=== PATIENT | female | born 1990 | race Two or more races ===

== ENCOUNTER 2024-01-28 12:57 | Inpatient (IN) | payer BC ==
[~2024-01-28] VITALS: Ht 152.4 cm; Wt 64.2 kg
[~2024-01-28 12:57] MED LIST: DOCU-94 PO; HYDR-4902 PO; IBUP-1456 PO
[2024-01-28 15:11] LABS: Urine Bacteria None Seen /hpf (None Seen)
[2024-01-28 15:28] LABS: Urine Blood Negative /uL (Negative); Urine Clarity Clear (Clear); Urine Mucus FEW (None Seen); Urine Protein, UAD TRACE (Negative); Urine Specific Gravity 1.024 (1.001-1.035); Urine Urobilinogen Normal (Negative); Urine WBC <1 /hpf (0 - 5); Urine pH 7.5 (5.0-9.0)
[2024-01-28 15:30] LABS: Urine Color Yellow (Yellow)
[2024-01-28] MEDS: SODIUM CHLORIDE 0.9% 500 ML IVB ONE (15:51)
[2024-01-28] MEDS: PANTOPRAZOLE 40 MG/10 ML VIAL INJ IV ONE (15:57)
[2024-01-28] MEDS: MORPHINE SULFATE 4 MG/ML SYR/VIAL IV ONE (15:57)
[2024-01-28] MEDS: ONDANSETRON HCL 4 MG/2 ML VIAL IV ONE (15:57)
[2024-01-28 16:00] VITALS: PULSE 59; RESP 18; O2SAT 98
[2024-01-28 16:10] LABS: Basophils # (auto) 0 10 ^3/uL (0-0.2); Basophils % (auto) 0.3 % (0.0-2.0); Eosinophils # (auto) 0 10 ^3/uL (0-0.8); Hematocrit 43.4 % (36.0-46.0); Hemoglobin 14.6 g/dL (12.2-16.2); Lymphocytes # (auto) 0.6 10 ^3/uL (0.4-5.4); Lymphocytes % (auto) 5.5 % (10.0-50.0); Mean Corpuscular Hemoglobin 29.3 pg (28.0-32.0); Mean Corpuscular Hgb Conc. 33.7 g/dL (32.0-36.0); Monocytes # (auto) 0.2 10 ^3/uL (0-1.3); Monocytes % (auto) 1.9 % (0.0-12.0); Neutrophils % (auto) 92.3 % (37.0-80.0); Nucleated Red Blood Cells % 0.1 %; Platelet Count (auto) 219 10^3/uL (140-450); Red Blood Cells 4.99 10^6/uL (4.0-5.20); Red Cell Distribution Width 13.8 % (11.8-14.3); White Blood Cell 10.9 10^3/uL (4.4-10.8)
[2024-01-28 16:29] LABS: Alanine Aminotransferase 15 U/L (7-40); Albumin 5.1 g/dL (3.2-4.8); Alkaline Phosphatase 149 U/L (46-116); Anion Gap 11 (5-15); Aspartate Aminotransferase 12 U/L (13-40); BUN/Creatinine Ratio 9.5 (10.0-20.0); Blood Urea Nitrogen 6 mg/dL (9-23); Calcium 9.7 mg/dL (8.7-10.4); Carbon Dioxide 21 mmol/L (20-31); Chloride 108 mmol/L (98-107); Glucose 106 mg/dL (74-106); Lipase 31 U/L (12-53); Potassium 3.4 mmol/L (3.5-5.1); Sodium 140 mmol/L (136-145)
[2024-01-28 16:30] LABS: Total Protein 7.9 g/dL (5.7-8.2)
[2024-01-28 16:32] LABS: Bilirubin, Total 0.7 mg/dL (0.2-1.0)
[2024-01-28] MEDS: SODIUM CHLORIDE 0.9% 1,000 ML IV SCH (19:01)
[2024-01-28 20:45] VITALS: PULSE 63; RESP 18; O2SAT 98
[2024-01-28 21:00] VITALS: BP 150/88; PULSE 63; RESP 17; TEMP 98.1; O2SAT 98
[2024-01-28 21:08] VITALS: BP 150/88; PULSE 63; TEMP 98.1; O2SAT 98
[2024-01-28 22:00] VITALS: BP 146/83; PULSE 59; RESP 16; TEMP 98; O2SAT 98
[2024-01-29] VITALS (8 sets, daily range): BP systolic 106–160; BP diastolic 67–88; PULSE 64–83; RESP 17–19; TEMP 98–98.6; O2SAT 96–100
[2024-01-29 06:05] LABS: Basophils # (auto) 0.1 10 ^3/uL (0-0.2); Basophils % (auto) 0.7 % (0.0-2.0); Eosinophils # (auto) 0.1 10 ^3/uL (0-0.8); Eosinophils % (auto) 0.8 % (0.0-7.0); Hematocrit 39.4 % (36.0-46.0); Hemoglobin 13.6 g/dL (12.2-16.2); Lymphocytes # (auto) 1.3 10 ^3/uL (0.4-5.4); Lymphocytes % (auto) 16.7 % (10.0-50.0); Mean Corpuscular Hgb Conc. 34.6 g/dL (32.0-36.0); Mean Corpuscular Volume 86.7 fL (80.0-100.0); Monocytes # (auto) 0.6 10 ^3/uL (0-1.3); Monocytes % (auto) 8.2 % (0.0-12.0); Neutrophils # (auto) 5.7 10 ^3/uL (1.6-8.6); Neutrophils % (auto) 73.6 % (37.0-80.0); Platelet Count (auto) 195 10^3/uL (140-450); Red Blood Cells 4.54 10^6/uL (4.0-5.20); Red Cell Distribution Width 13.6 % (11.8-14.3); White Blood Cell 7.8 10^3/uL (4.4-10.8)
[2024-01-29 06:11] LABS: Anion Gap 10 (5-15); Carbon Dioxide 22 mmol/L (20-31); Chloride 107 mmol/L (98-107); Potassium 3.1 mmol/L (3.5-5.1); Sodium 139 mmol/L (136-145)
[2024-01-29 06:12] LABS: Calcium 8.8 mg/dL (8.7-10.4)
[2024-01-29 06:17] LABS: BUN/Creatinine Ratio 8.9 (10.0-20.0); Blood Urea Nitrogen 5 mg/dL (9-23); Glucose 92 mg/dL (74-106)
[2024-01-29] MEDS: PANTOPRAZOLE 40 MG/10 ML VIAL INJ IV SCH (09:18)
[2024-01-29] MEDS: POTASSIUM EFFERVESENT TAB 25 MEQ PO ONE (09:18)
[2024-01-29 10:26] LABS: Beta HCG, Quantitative < 0.0 mIU/mL (1.5-4.2)
[2024-01-29 10:29] LABS: Thyroid Stimulating Hormone 0.81 uIU/mL (0.55-4.78)
[2024-01-29 10:48] LABS: Amphetamine Screen, Urine Neg (NEGATIVE); Barbiturate Scree,Urine Neg (NEGATIVE); Benzodiazephine Screen, Urine Neg (NEGATIVE); Cannabinoid Screen, Urine Neg (NEGATIVE); Cocaine Screen, Urine Neg (NEGATIVE); Opiate Scree,Urine Neg (NEGATIVE); Phencyclidine Screen, Urine Neg (NEGATIVE)
[2024-01-29] MEDS: ERGOCALCIFEROL 50,000 UNIT(1.25MG) CAP PO SCH (15:19)
[2024-01-29] MEDS: KETOROLAC TROMETH 30 MG/ML 1ML VIAL IV PRN (15:19)
[2024-01-30] VITALS (9 sets, daily range): BP systolic 105–137; BP diastolic 61–87; PULSE 62–81; RESP 16–19; TEMP 97.4–98.3; O2SAT 94–100
[2024-01-30] MEDS: MORPHINE SULFATE INJ 2 MG/ml SYRG IV PRN (01:30)
[2024-01-30] MEDS: ONDANSETRON HCL 4 MG/2 ML VIAL IV PRN (04:20)
[2024-01-30 05:20] LABS: Anion Gap 11 (5-15); Calcium 8.9 mg/dL (8.7-10.4); Carbon Dioxide 22 mmol/L (20-31); Chloride 107 mmol/L (98-107); Potassium 3.5 mmol/L (3.5-5.1); Sodium 140 mmol/L (136-145)
[2024-01-30 05:26] LABS: Glucose 83 mg/dL (74-106)
[2024-01-30 05:29] LABS: BUN/Creatinine Ratio 9.6 (10.0-20.0); Blood Urea Nitrogen < 5 mg/dL (9-23)
[2024-01-30] MEDS: ceFAZolin 2 GM/D5W100ml 100 ML IV ONE (08:25)
[2024-01-30] MEDS ORDERED: ROCURONIUM 10MG/ML 10ML VIAL IV ONE (08:36)
[2024-01-30] MEDS ORDERED: MIDAZOLAM HCL 2MG/2ML 2ml VIAL (1mg/ml) ONE (08:36)
[2024-01-30] MEDS ORDERED: HYDROmorphone HCL 2 MG/ML VL/or syr ONE (09:00)
[2024-01-30] MEDS ORDERED: ONDANSETRON HCL 4 MG/2 ML VIAL ONE (09:09)
[2024-01-30] MEDS ORDERED: DexAMETHasone SOD PHOS 10MG/1ML VIAL INJ ONE (09:09)
[2024-01-30] MEDS ORDERED: KETOROLAC TROMETH 30 MG/ML 1ML VIAL ONE (09:09)
[2024-01-30] MEDS ORDERED: ONDANSETRON HCL 4 MG/2 ML VIAL IV PRN (09:30)
[2024-01-30] MEDS ORDERED: HYDROmorphone HCL 2 MG/ML VL/or syr IV PRN (09:30)
[2024-01-30] MEDS: PANTOPRAZOLE 40 MG/10 ML VIAL INJ IV SCH (10:00)
[2024-01-30] MEDS: D5W/SOD CHL 0.45%/KCL 20MEQ 1,000 ML IV SCH (11:05)
[2024-01-30] MEDS: metroNIDAZOLE 500MG/100ML 100 ML IV SCH (14:00)
[2024-01-30] MEDS: ceFAZolin 2 GM/D5W50ml 50 ML IV SCH (16:11)
[2024-01-30] MEDS: ACETAMINOPHEN 325 MG TAB PO PRN (22:41)
[2024-01-31] VITALS (8 sets, daily range): BP systolic 104–142; BP diastolic 63–85; PULSE 62–73; RESP 16–22; TEMP 97.5–98.3; O2SAT 96–100
[2024-01-31 07:15] LABS: Basophils # (auto) 0 10 ^3/uL (0-0.2); Basophils % (auto) 0.7 % (0.0-2.0); Eosinophils # (auto) 0.1 10 ^3/uL (0-0.8); Eosinophils % (auto) 2.1 % (0.0-7.0); Hematocrit 34.6 % (36.0-46.0); Hemoglobin 11.8 g/dL (12.2-16.2); Lymphocytes # (auto) 1.2 10 ^3/uL (0.4-5.4); Lymphocytes % (auto) 20.2 % (10.0-50.0); Mean Corpuscular Hemoglobin 29.9 pg (28.0-32.0); Mean Corpuscular Hgb Conc. 34.2 g/dL (32.0-36.0); Mean Corpuscular Volume 87.4 fL (80.0-100.0); Monocytes # (auto) 0.5 10 ^3/uL (0-1.3); Monocytes % (auto) 8.2 % (0.0-12.0); Neutrophils # (auto) 4.2 10 ^3/uL (1.6-8.6); Neutrophils % (auto) 68.8 % (37.0-80.0); Platelet Count (auto) 176 10^3/uL (140-450); Red Blood Cells 3.96 10^6/uL (4.0-5.20); Red Cell Distribution Width 13.5 % (11.8-14.3); White Blood Cell 6.2 10^3/uL (4.4-10.8)
[2024-01-31] MEDS: ceFAZolin 2 GM/D5W50ml 50 ML IV SCH (09:04)
[2024-02-01 01:00] VITALS: BP 97/63; PULSE 63; RESP 16; TEMP 97.7; O2SAT 98
[2024-02-01 05:00] VITALS: BP 113/61; PULSE 68; RESP 16; TEMP 97.8; O2SAT 97
[2024-02-01 07:37] LABS: Basophils # (auto) 0 10 ^3/uL (0-0.2); Basophils % (auto) 0.7 % (0.0-2.0); Eosinophils # (auto) 0.1 10 ^3/uL (0-0.8); Eosinophils % (auto) 3.7 % (0.0-7.0); Hemoglobin 12.4 g/dL (12.2-16.2); Lymphocytes % (auto) 24.9 % (10.0-50.0); Mean Corpuscular Hemoglobin 30.2 pg (28.0-32.0); Mean Corpuscular Hgb Conc. 34.4 g/dL (32.0-36.0); Mean Corpuscular Volume 87.8 fL (80.0-100.0); Monocytes # (auto) 0.3 10 ^3/uL (0-1.3); Monocytes % (auto) 8.2 % (0.0-12.0); Neutrophils # (auto) 2.5 10 ^3/uL (1.6-8.6); Neutrophils % (auto) 62.5 % (37.0-80.0); Platelet Count (auto) 185 10^3/uL (140-450); Red Cell Distribution Width 13.5 % (11.8-14.3); White Blood Cell 4.1 10^3/uL (4.4-10.8)
[2024-02-01 07:40] LABS: Alanine Aminotransferase 16 U/L (7-40); Albumin 3.9 g/dL (3.2-4.8); Alkaline Phosphatase 102 U/L (46-116); Anion Gap 7 (5-15); Aspartate Aminotransferase 10 U/L (13-40); Bilirubin, Total 0.4 mg/dL (0.2-1.0); Blood Urea Nitrogen 6 mg/dL (9-23); Carbon Dioxide 28 mmol/L (20-31); Chloride 105 mmol/L (98-107); Glucose 88 mg/dL (74-106); Potassium 3.1 mmol/L (3.5-5.1); Sodium 140 mmol/L (136-145); Total Protein 6.2 g/dL (5.7-8.2)
[2024-02-01 09:00] VITALS: BP 128/90; PULSE 64; RESP 16; TEMP 97.9; O2SAT 98
[2024-02-01] MEDS ORDERED: ERGO1CAP23 PO (09:51)
[2024-02-01] MEDS ORDERED: CEPH250C PO (09:51)
[2024-02-01] MEDS ORDERED: METR-344 PO (09:52)
[2024-02-01 11:10] VITALS: TEMP 36.6
[2024-02-01] MEDS: POTASSIUM CHL 20 Meq TABLET PO ONE (11:42)
== END 2024-02-01 13:25 | disposition home or self-care (01) | DRG 418 ==
LOC: ER 13:09 → OVERFLOW 18:21 → WEST WING 20:43
PROVIDERS: ADMIT Internal Medicine; ATTEND Internal Medicine
PROC: 0FT44ZZ Resection of Gallbladder, Percutaneous Endoscopic Approach (ICD-10-PCS; principal; 2024-01-30 08:36)
DX: K80.12 Calculus of gallbladder with acute and chronic cholecystitis without obstruction (principal); N20.1 Calculus of ureter; E87.6 Hypokalemia; I10 Essential (primary) hypertension; E55.9 Vitamin D deficiency, unspecified; E66.9 Obesity, unspecified; K66.0 Peritoneal adhesions (postprocedural) (postinfection); Z98.891 History of uterine scar from previous surgery; Z68.27 Body mass index [BMI] 27.0-27.9, adult; Z79.899 Other long term (current) drug therapy
CPT/HCPCS: 36415; 76705; 80048; 80053; 80307; 81001; 81025; 82247; 82306; 82607; 83690; 83735; 84443; 84702; 85025; 86850; 86900; 86901; 96374; 96375; G0378; J1100; J1885; J2250; J2405; J2470; J3490

== ENCOUNTER 2024-02-19 17:59 | Inpatient (IN) | payer BC ==
[~2024-02-19] VITALS: Ht 152.4 cm; Wt 64.4 kg
[~2024-02-19 17:59] MED LIST changes: +CEPH250C PO; +ERGO1CAP23 PO; +METR-344 PO
[2024-02-19] MEDS: SODIUM CHLORIDE 0.9% 1,000 ML IVB ONE (18:15)
--- NOTE | 2024-02-19 18:26 | ED.PDOC ---
History of Present Illness HPI Comments 33 y/o F, with a Hx of cholecystectomy, , preeclampsia, and EtOH use, presents with c/o non-radiating, RUQ abdominal pain, nausea, vomiting, and constipation since 1300, today. Patient endorses on unprovoked and sudden onset of symptoms, this afternoon, that has been persisting since. Patient comments on vomitus being green and having white phlegm in it in addition to having an associated "heart burn" sensation. Patient also informs of recent cholecystectomy 2.5 weeks ago and 3 months ago. Patient endorses on no further relevant or pertinent past medical or surgical Hx in addition to recent stress, injuries, sick contact, travel, spoiled food intake, or substance us e/exposure. Patient denies having any diarrhea, urinary symptoms, fever, chills, or other associated symptoms or modifiers at this time. Chief Complaint: Abdominal Pain Time Seen by MD: 18:10 Primary Care Provider: UNKNOWN Reviewed Notes: Nurses Notes, Medications, Allergies Allergies: Coded Allergies: NO KNOWN ALLERGIES (Unverified , 09/14/23) Home Meds Active Scripts Metronidazole (Flagyl) 500 Mg Tab, 1 TAB PO TID for 5 Days, #15 TAB Prov:AQUILES GARZON RESIDENT 02/01/24 Cephalexin (KEFLEX CAPSULE) 250 Mg Cp, 2 CAP PO BID for 5 Days, #28 CAP Prov:AQUILES GARZON RESIDENT 02/01/24 Ergocalciferol (VITAMIN D 55653 UNIT) 50,000 [place], [address] UNIT PO Q7D for 90 Days, #12 CAP Prov:AQUILES GARZON RESIDENT 02/01/24 Ibuprofen (Ibuprofen) 800 Mg Tab, 800 MG PO TID PRN for 5 Days, #15 TAB Prov:PRESLEY SHAVER DO 09/14/23 Hydrocodone-Acetaminophen (Hydrocodone Bitartrate/AC 5-325 mg) 1 Tab Tab, 1 TAB PO Q6HPRN PRN for 7 Days, #28 TAB Prov:PRESLEY SHAVER DO 09/14/23 Docusate Sodium (Colace) 100 Mg Cap, 1 CAP PO BID, #60 CAP 2 Refills Prov:PRESLEY SHAVER DO 09/14/23 Information Source: Patient Mode of Arrival: Ambulatory Severity: Moderate Timing: Hours Duration: Since onset Prehospital treatment: None Past Medical History 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, 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 (preeclampsia) Family History Family History: Reviewed,noncontributory to illness, Family hx of DM, Family hx of HTN Social History Smoker: Non-Smoker Alcohol: Occasionally Drugs: Denies Drug Use Lives In: Home Constitutional: denies: chills, diaphoresis, fatigue, fever, malaise, sweats, weakness, others EENTM: denies: blurred vision, double vision, ear bleeding, ear discharge, ear drainage, ear pain, ear ringing, eye pain, eye redness, hearing loss, mouth pain, mouth swelling, nasal discharge, nose bleeding, nose congestion, nose pain, photophobia, tearing, throat pain, throat swelling, voice changes, others Respiratory: denies: cough, hemoptysis, orthopnea, SOB at rest, shortness of breath, SOB with excertion, stridor, wheezing, others Cardiovascular: denies: chest pain, dizzy spells, diaphoresis, Dyspnea on exertion, edema, irregular heart beat, left arm pain, lightheadedness, palpitations, PND, syncope, others Gastrointestinal: reports: abdominal pain, constipated, nausea, vomiting; aylin es: abdomen distended, blood streaked bowels, diarrhea, dysphagia, difficulty swallowing, hematemesis, melena, poor appetite, poor fluid intake, rectal bleeding, rectal pain, others Genitourinary: denies: abnormal vagina bleeding, burning, dyspareunia, dysuria, flank pain, frequency, hematuria, incontinence, pain, , vagina discharge, urgency, others Neurological: denies: dizziness, fainting, headache, left sided numbness, left sided weakness, numbness, paresthesia, pre-existing deficit, right sided numbness, right sided weakness, seizure, speech problems, tingling, tremors, weakness, others Musculoskeletal: denies: back pain, gout, joint pain, joint swelling, muscle pain, muscle stiffness, neck pain, others Integumetry: denies: bruises, change in color, change in hair/nails, dryness, laceration, lesions, lumps, rash, wounds, others Allergic/Immunocompromised: denies: Difficulty Healing, Frequent Infections, Hives, Itching, others Hematologic/Lymphatic: denies: anemia, blood clots, easy bleeding, easy bruising, swollen glands, others Endocrine: denies: excessive hunger, excessive sweating, excessive thirst, excessive urination, flushing, intolerance to cold, intolerance to heat, unexplained weight gain, unexplained weight loss, others Psychiatric: denies: anxiety, bipolar disorder, depression, hopeless, panic disorder, schizophrenia, sleepless, suicidal, others All Other Systems: Reviewed and Negative Physical Exam General Appearance: No Apparent Distress, Normal HEENT: Normal ENT Inspection, Pharynx Normal, TMs Normal Neck: Full Range of Motion, Non-Tender, Normal, Normal Inspection Respiratory: Chest Non-Tender, Lungs Clear, No Accessory Muscle Use, No Respiratory Distress, Normal Breath Sounds Cardiovascular: No Edema, No JVD, No Murmur, No Gallop, Normal Peripheral Pulses, Regular Rate/Rhythm Breast Exam: Deferred Gastrointestinal: No Organomegaly, No Pulsatile Mass, Normal Bowel Sounds, RUQ (moderate tenderness), Soft Genitalia: Deferred Pelvic: Deferred Rectal: Deferred Extremities: No calf tenderness, Normal capillary refill, Normal inspection, Normal range of motion, Non-tender, No pedal edema Musculoskeletal : Apperance: Normal Neurologic: Alert, transportation associate II-XII nml as Tested, No Motor Deficits, Normal Affect, Normal Mood, No Sensory Deficits Cerebellar Function: Normal Reflexes: Normal Skin: Dry, Normal Color, Warm Lymphatic: No Adenopathy Was a procedure done? Was a procedure done?: No Differential Dx Considerations may include: cholelithiasis, gastritis, gastroenteritis, PUD, GERD, viral syndrome, spoiled food, , acute abdomen X-Ray, Labs, Meds, VS Vital Signs Date Time Temp Pulse Resp B/P (MAP) Pulse Ox O2 Delivery O2 Flow Rate FiO2 02/19/24 19:44 67 16 99 Room Air 02/19/24 19:43 98.3 67 16 143/86 (105) 99 98.3 02/19/24 18:12 97.7 107 20 138/90 (106) 100 02/19/24 18:12 97.7 107 20 138/90 (106) 100 97.7 Lab Test 02/19/24 18:40 02/19/24 18:25 Range/Units White Blood Count 5.9 4.4-10.8 10^3/uL Red Blood Count 4.66 4.0-5.20 10^6/uL Hemoglobin 13.9 12.2-16.2 g/dL Hematocrit 41.1 36.0-46.0 % Mean Corpuscular Volume 88.1 80.0-100.0 fL Mean Corpuscular Hemoglobin 29.7 28.0-32.0 pg Mean Corpuscular Hemoglobin Concent 33.7 32.0-36.0 g/dL Red Cell Distribution Width 13.6 11.8-14.3 % Platelet Count 231 140-450 10^3/uL Mean Platelet Volume 8.8 6.9-10.8 fL Neutrophils (%) (Auto) 79.5 37.0-80.0 % Lymphocytes (%) (Auto) 12.2 10.0-50.0 % Monocytes (%) (Auto) 7.1 0.0-12.0 % Eosinophils (%) (Auto) 0.6 0.0-7.0 % Basophils (%) (Auto) 0.6 0.0-2.0 % Neutrophils # (Auto) 4.7 1.6-8.6 10 ^3/uL Lymphocytes # (Auto) 0.7 0.4-5.4 10 ^3/uL Monocytes # (Auto) 0.4 0-1.3 10 ^3/uL Eosinophils # (Auto) 0 0-0.8 10 ^3/uL Basophils # (Auto) 0 0-0.2 10 ^3/uL Nucleated Red Blood Cells 0.1 % Sodium Level 141 136-145 mmol/L Potassium Level 3.8 3.5-5.1 mmol/L Chloride Level 104 98-107 mmol/L Carbon Dioxide Level 23 20-31 mmol/L Anion Gap 14 5-15 Blood Urea Nitrogen 8 L 9-23 mg/dL Creatinine 0.52 L 0.550-1.02 mg/dL Glomerular Filtration Rate Calc 125 >90 mL/min BUN/Creatinine Ratio 15.4 10.0-20.0 Serum Glucose 101 74-106 mg/dL Lactic Acid Level 0.7 0.4-2.0 mmol/L Calcium Level 9.7 8.7-10.4 mg/dL Total Bilirubin 2.5 H 0.2-1.0 mg/dL Aspartate Amino Transferase (AST) 615 H 13-40 U/L Alanine Aminotransferase (ALT) 452 H 7-40 U/L Alkaline Phosphatase 404 H 46-116 U/L Total Protein 7.1 5.7-8.2 g/dL Albumin 4.7 3.2-4.8 g/dL Lipase 23 12-53 U/L Beta HCG, Quantitative 0.7 L 1.5-4.2 mIU/mL Urine Color Dark-yellow Yellow Urine Clarity Turbid H Clear Urine pH 6.0 5.0-9.0 Urine Specific [place] 1.031 1.001-1.035 Urine Protein 1+ H Negative Urine Ketones 3+ H Negative Urine Blood Negative Negative /uL Urine Nitrite Negative Negative Urine Bilirubin 2+ H Negative Urine Urobilinogen 4 H Negative mg/dL Urine Leukocyte Esterase Negative Negative /uL Urine RBC 5 0 - 4 /hpf Urine WBC 6 0 - 5 /hpf Urine Squamous Epithelial Cells Few <5 /hpf Urine Bacteria Few H None Seen /hpf Urine Mucus Few None Seen Urine Glucose Normal Normal mg/dL Current Medications Medications (Trade) Dose Ordered Sig/Louie Route Start Time Stop Time Status Last Admin Sodium Chloride 1,000 ml @ 1,000 mls/hr Q1H ONCE IVB 02/19/24 18:15 02/19/24 19:14 DC 02/19/24 18:15 Ketorolac Tromethamine (Toradol Injection) 30 mg ONCE ONCE IV 02/19/24 18:15 02/19/24 18:19 DC 02/19/24 19:46 [place] [id number] Ph: [phone] DIAGNOSTIC IMAGING Diagnostic Imaging Report : [id number] Signed PATIENT: ARMAND MATA ACCT: [id number] UNIT: [id number] : 1990 LOC: ER ROOM / BED: / AGE / SEX: 33 / F ADM STATUS: REG ER SERVICE 675 ORDERING PHYSICIAN: SHINE GILMORE MD PROCEDURE(s): ABPLIV - CT AB PEL WITH IV CON ONLY REASON: ruq tend ORDER NUMBER(s): [id number], ACCESSION NUMBER(s): [id number] Exam: CT CT AB PEL WITH IV CON ONLY History: ruq tend Comparison Study: None available at time of dictation. TECHNIQUE: Multidetector CT of the abdomen was performed from lung bases to pubic symphysis. Imaging was performed without IV contrast. Axial, coronal and sagittal multiplanar reformats were obtained from the axial data set by the technologist. Radiation Dose Information: CT Dose: CTDI volume is 6.89 mGy. Dose-length product is 367.05 mGy*cm Omnipaque 300: 100 cc FINDINGS: Lung Bases: No acute or significant lung base finding. Normal heart size. No pleural or pericardial effusion. Liver: The liver is normal in size. No focal lesions. Gallbladder and Biliary Tree: Surgical clips in the gallbladder fossa from previous cholecystectomy. No dilated intrahepatic ducts. Spleen: Unremarkable Pancreas: The pancreas is grossly normal in appearance. Adrenal Glands: Unremarkable Kidneys: Kidneys are grossly normal without calculi or hydronephrosis. Bladder: Grossly unremarkable for degree of distention. Bowel: The stomach is grossly normal in appearance. Small bowel and colon are normal in caliber and distribution. The appendix is not visualized; however, no secondary findings of acute appendicitis identified. Ascites: Absent Lymphadenopathy: No mesenteric, retroperitoneal or periportal lymphadenopathy. Abdominal Wall and Mesentery: Unremarkable. Vasculature: The visualized abdominal aorta is normal in size and caliber. Evaluation of abdominal and pelvic vessels is limited due to lack of intravenous contrast. Pelvic Organs: Unremarkable Musculoskeletal: No aggressive focal bony lesions, acute fractures or dislocation. Soft tissues: Unremarkable IMPRESSION: 1. Gallbladder is been surgically removed. 2. No CT findings to suggest bowel obstruction. 3. Stool noted throughout the colon. 4. No nephrolithiasis or hydronephrosis. Radiation optimization: All CT scans at this facility use at least one of these dose optimization techniques: automated exposure control mA and/or kV adjustment per patient size (includes targeted exams where dose is matched to clinical indication) or iterative reconstruction. ATED BY: GIANNI LOWERY Jr., DO DICTATED DATE/TIME: 02/19/242110 SIGNED BY: GIANNI LOWERY Jr., SIGNED DATE/TIME: 02/19/242110 CC: UA is normal. Abdominal ultrasound is pending CBC is normal LFTs are elevated. The patient will be admitted for intractable vomiting. Time of 1ST Reevaluation: 18:40 Reevaluation 1ST: Unchanged Patient Education/Counseling: Diagnosis, Treatment Family Education/Counseling: No Family Present Departure 1 Departure Time of Disposition: 21:32 Impression: Primary Impression: Elevated LFTs Additional Impression: Biliary obstruction Disposition: 09 ADMITTED INPATIENT Admit to: Med Surg Condition: Guarded Critical Care Note Critical Care Time?: No Stability Stability form required: No Heart Score Heart Score: Heart Score Response (Comments) Value History N/A 0 EKG N/A 0 Age N/A 0 Risk Factors N/A 0 Troponin N/A 0 Total 0 I personally scribed for SHINE GILMORE MD ([email or web address]) on 02/19/24 at 18:26. Electronically submitted by Josiah Friedman [email or web address]). I personally scribed for SHINE GILMORE MD ([email or web address]) on 02/19/24 at 21:19. Electronically submitted by Josiah Friedman [email or web address]). SHINE GILMORE MD Feb 19, 2024 18:26
[2024-02-19 18:35] LABS: Urine Bacteria FEW /hpf (None Seen); Urine Blood Negative /uL (Negative); Urine Clarity Turbid (Clear); Urine Color Dark-Yellow (Yellow); Urine Mucus FEW (None Seen); Urine Protein, UAD 1+ (Negative); Urine Specific Gravity 1.031 (1.001-1.035); Urine Urobilinogen 4 mg/dL (Negative); Urine WBC 6 /hpf (0 - 5)
[2024-02-19 19:17] LABS: Basophils # (auto) 0 10 ^3/uL (0-0.2); Basophils % (auto) 0.6 % (0.0-2.0); Eosinophils # (auto) 0 10 ^3/uL (0-0.8); Eosinophils % (auto) 0.6 % (0.0-7.0); Hematocrit 41.1 % (36.0-46.0); Hemoglobin 13.9 g/dL (12.2-16.2); Lymphocytes # (auto) 0.7 10 ^3/uL (0.4-5.4); Lymphocytes % (auto) 12.2 % (10.0-50.0); Mean Corpuscular Hemoglobin 29.7 pg (28.0-32.0); Mean Corpuscular Hgb Conc. 33.7 g/dL (32.0-36.0); Mean Corpuscular Volume 88.1 fL (80.0-100.0); Monocytes # (auto) 0.4 10 ^3/uL (0-1.3); Monocytes % (auto) 7.1 % (0.0-12.0); Neutrophils # (auto) 4.7 10 ^3/uL (1.6-8.6); Neutrophils % (auto) 79.5 % (37.0-80.0); Nucleated Red Blood Cells % 0.1 %; Platelet Count (auto) 231 10^3/uL (140-450); Red Blood Cells 4.66 10^6/uL (4.0-5.20); Red Cell Distribution Width 13.6 % (11.8-14.3); White Blood Cell 5.9 10^3/uL (4.4-10.8)
[2024-02-19 19:45] LABS: Alanine Aminotransferase 452 U/L (7-40); Albumin 4.7 g/dL (3.2-4.8); Alkaline Phosphatase 404 U/L (46-116); Anion Gap 14 (5-15); Aspartate Aminotransferase 615 U/L (13-40); BUN/Creatinine Ratio 15.4 (10.0-20.0); Bilirubin, Total 2.5 mg/dL (0.2-1.0); Blood Urea Nitrogen 8 mg/dL (9-23); Calcium 9.7 mg/dL (8.7-10.4); Carbon Dioxide 23 mmol/L (20-31); Chloride 104 mmol/L (98-107); Glucose 101 mg/dL (74-106); Lipase 23 U/L (12-53); Potassium 3.8 mmol/L (3.5-5.1); Sodium 141 mmol/L (136-145); Total Protein 7.1 g/dL (5.7-8.2)
[2024-02-19] MEDS: KETOROLAC TROMETH 30 MG/ML 1ML VIAL IV ONE (19:46)
[2024-02-19] MEDS: IOHEXOL 300 MG/ML 100ML BOTTLE IJ ONE (20:22)
--- NOTE | 2024-02-19 21:13 | DVH ---
Exam: CT CT AB PEL WITH IV CON ONLY History: ruq tend Comparison Study: None available at time of dictation. TECHNIQUE: Multidetector CT of the abdomen was performed from lung bases to pubic symphysis. Imaging was performed without IV contrast. Axial, coronal and sagittal multiplanar reformats were obtained fr om the axial data set by the technologist. Radiation Dose Information: CT Dose: CTDI volume is 6.89 mGy. Dose-length product is 367.05 mGy*cm Omnipaque 300: 100 cc FINDINGS: Lung Bases: No acute or significant lung base finding. Normal heart size. No pleural or pericardial effusion. Liver: The liver is normal in size. No focal lesions. Gallbladder and Biliary Tree: Surgical clips in the gallbladder fossa from previous cholecystectomy. No dilated intrahepatic ducts. Spleen: Unremarkable Pancreas: The pancreas is grossly normal in appearance. Adrenal Glands: Unremarkable Kidneys: Kidneys are grossly normal without calculi or hydronephrosis. Bladder: Grossly unremarkable for degree of distention. Bowel: The stomach is grossly normal in appearance. Small bowel and colon are normal in caliber and d istribution. The appendix is not visualized; however, no secondary findings of acute appendicitis id entified. Ascites: Absent Lymphadenopathy: No mesenteric, retroperitoneal or periportal lymphadenopathy. Abdominal Wall and Mesentery: Unremarkable. Vasculature: The visualized abdominal aorta is normal in size and caliber. Evaluation of abdominal a nd pelvic vessels is limited due to lack of intravenous contrast. Pelvic Organs: Unremarkable Musculoskeletal: No aggressive focal bony lesions, acute fractures or dislocation. Soft tissues: Unremarkable IMPRESSION: 1. Gallbladder is been surgically removed. 2. No CT findings to suggest bowel obstruction. 3. Stool noted throughout the colon. 4. No nephrolithiasis or hydronephrosis. Radiation optimization: All CT scans at this facility use at least one of these dose optimization jacques hniques: automated exposure control mA and/or kV adjustment per patient size (includes targeted exam s where dose is matched to clinical indication) or iterative reconstruction.
--- NOTE | 2024-02-19 21:52 | DVH ---
Procedure: US ABDOMEN LIMITED Study Date and Requested Time: 02/19/2024 09:15 PM History: ELEV LFTS Comparison: US GALLBLADDER on DOS: 01/28/24 Technique: Multiple high resolution benjamin-scale images obtained of the right upper quadrant of the abd omen with color Doppler for evaluation of blood flow and vascularity as indicated. Findings: Liver normal in size, measuring 15 cm in length, with homogenous echotexture and normal contours. No evidence of focal hepatic lesions, intrahepatic or extrahepatic ductal dilatation. Common bile duct m easures 0.8 cm in diameter. Status post cholecystectomy Pancreas is unremarkable. Right kidney measures 9 cm in length, with normal contours, echotexture, and cortical thickness. No e vidence of hydronephrosis, calculi, cystic or solid renal lesions. Partially visualized inferior vena cava unremarkable. Impression: Unremarkable sonographic study of the right upper quadrant of the abdomen. Status post cholecystectomy.
[2024-02-19] MEDS: ONDANSETRON HCL 4 MG/2 ML VIAL IV ONE (23:42)
[2024-02-19] MEDS: HYDROmorphone HCL 2 MG/ML VL/or syr IV ONE (23:42)
[2024-02-19 23:49] VITALS: PULSE 54; RESP 18; O2SAT 100
[2024-02-20 00:50] VITALS: PULSE 56; RESP 18; O2SAT 100
[2024-02-20 08:00] VITALS: PULSE 79; RESP 22; O2SAT 97
[2024-02-20 16:40] LABS: Alanine Aminotransferase 382 U/L (7-40); Albumin 4.5 g/dL (3.2-4.8); Alkaline Phosphatase 426 U/L (46-116); Anion Gap 15 (5-15); Aspartate Aminotransferase 257 U/L (13-40); BUN/Creatinine Ratio 14.5 (10.0-20.0); Blood Urea Nitrogen 8 mg/dL (9-23); Calcium 9.3 mg/dL (8.7-10.4); Carbon Dioxide 19 mmol/L (20-31); Chloride 104 mmol/L (98-107); Glucose 65 mg/dL (74-106); Potassium 3.8 mmol/L (3.5-5.1); Sodium 138 mmol/L (136-145)
[2024-02-20 16:41] LABS: Bilirubin, Total 3.9 mg/dL (0.2-1.0); Total Protein 7.1 g/dL (5.7-8.2)
--- NOTE | 2024-02-20 17:31 | DVHHP2 ---
Admitting Diagnosis: Abdominal pain History of Present Illness 33 y/o F, with a Hx of cholecystectomy, , preeclampsia, and EtOH use, presents with c/o non-radiating, RUQ abdominal pain, nausea, vomiting, and constipation since 1300, today. Patient endorses on unprovoked and sudden onset of symptoms, this afternoon, that has been persisting since. Patient comments on vomitus being green and having white phlegm in it in addition to having an associated "heart burn" sensation. Patient also informs of recent cholecystectomy 2.5 weeks ago and 3 months ago. Patient endorses on no further relevant or pertinent past medical or surgical Hx in addition to recent stress, injuries, sick contact, travel, spoiled food intake, or substance use/exposure. Patient denies having any diarrhea, urinary symptoms, fever, chills, or other associated symptoms or modifiers at this time. 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) Family History Family History: Reviewed,noncontributory to illness, Family hx of DM, Family hx of HTN Social History Smoker: Non-Smoker Alcohol: Occasionally Drugs: Denies Drug Use Lives In: Home Patient Family History: Diabetes mellitus G8 FATHER FH: multiple sclerosis G8 MOTHER Allergies: Coded Allergies: NO KNOWN ALLERGIES (Unverified , 09/14/23) Home Meds Active Scripts Metronidazole (Flagyl) 500 Mg Tab, 1 TAB PO TID for 5 Days, #15 TAB Prov:AQUILES GARZON RESIDENT 02/01/24 Cephalexin (KEFLEX CAPSULE) 250 Mg Cp, 2 CAP PO BID for 5 Days, #28 CAP Prov:AQUILES GARZON [facility] 02/01/24 Ergocalciferol (VITAMIN D 19905 UNIT) 50,000 [place], [address] UNIT PO Q7D for 90 Days, #12 CAP Prov:AQUILES GARZON RESIDENT 02/01/24 Ibuprofen (Ibuprofen) 800 Mg Tab, 800 MG PO TID PRN for 5 Days, #15 TAB Prov:PRESLEY SHAVER DO 09/14/23 Hydrocodone-Acetaminophen (Hydrocodone Bitartrate/AC 5-325 mg) 1 Tab Tab, 1 TAB PO Q6HPRN PRN for 7 Days, #28 TAB Prov:PRESLEY SHAVER DO 09/14/23 Docusate Sodium (Colace) 100 Mg Cap, 1 CAP PO BID, #60 CAP 2 Refills Prov:PRESLEY SHAVER DO 09/14/23 Vital Signs Vital Signs Date Time Temp Pulse Resp B/P (MAP) Pulse Ox O2 Delivery O2 Flow Rate FiO2 02/20/24 14:00 70 22 110/70 (83) 97 02/20/24 08:00 Room Air* 0 21 02/20/24 08:00 98.2 98.2 Physical Exam -33 years old woman, well nourished well developed. Moderate distress HEENT-atraumatic normocephalic Heart-regular rate and rhythm Lungs clear to auscultate Abdomen soft, tender epigastric and right upper quadrant, nondistended Musculoskeletal-no edema cyanosis Neuro-AO x3, no focal deficit Results Labs Test 02/20/24 15:58 02/19/24 18:40 02/19/24 18:25 Range/Units Sodium Level 138 136-145 mmol/L Potassium Level 3.8 3.5-5.1 mmol/L Chloride Level 104 98-107 mmol/L Carbon Dioxide Level 19 L 20-31 mmol/L Anion Gap 15 5-15 Blood Urea Nitrogen 8 L 9-23 mg/dL Creatinine 0.55 0.550-1.02 mg/dL Glomerular Filtration Rate Calc 123 >90 mL/min BUN/Creatinine Ratio 14.5 10.0-20.0 Serum Glucose 65 L 74-106 mg/dL Calcium Level 9.3 8.7-10.4 mg/dL Total Bilirubin 3.9 H 0.2-1.0 mg/dL Aspartate Amino Transferase (AST) 257 H 13-40 U/L Alanine Aminotransferase (ALT) 382 H 7-40 U/L Alkaline Phosphatase 426 H 46-116 U/L Total Protein 7.1 5.7-8.2 g/dL Albumin 4.5 3.2-4.8 g/dL White Blood Count 5.9 4.4-10.8 10^3/uL Red Blood Count 4.66 4.0-5.20 10^6/uL Hemoglobin 13.9 12.2-16.2 g/dL Hematocrit 41.1 36.0-46.0 % Mean Corpuscular Volume 88.1 80.0-100.0 fL Mean Corpuscular Hemoglobin 29.7 28.0-32.0 pg Mean Corpuscular Hemoglobin Concent 33.7 32.0-36.0 g/dL Red Cell Distribution Width 13.6 11.8-14.3 % Platelet Count 231 140-450 10^3/uL Mean Platelet Volume 8.8 6.9-10.8 fL Neutrophils (%) (Auto) 79.5 37.0-80.0 % Lymphocytes (%) (Auto) 12.2 10.0-50.0 % Monocytes (%) (Auto) 7.1 0.0-12.0 % Eosinophils (%) (Auto) 0.6 0.0-7.0 % Basophils (%) (Auto) 0.6 0.0-2.0 % Neutrophils # (Auto) 4.7 1.6-8.6 10 ^3/uL Lymphocytes # (Auto) 0.7 0.4-5.4 10 ^3/uL Monocytes # (Auto) 0.4 0-1.3 10 ^3/uL Eosinophils # (Auto) 0 0-0.8 10 ^3/uL Basophils # (Auto) 0 0-0.2 10 ^3/uL Nucleated Red Blood Cells 0.1 % Lactic Acid Level 0.7 0.4-2.0 mmol/L Lipase 23 12-53 U/L Beta HCG, Quantitative 0.7 L 1.5-4.2 mIU/mL Urine Color Dark-yellow Yellow Urine Clarity Turbid H Clear Urine pH 6.0 5.0-9.0 Urine Specific [place] 1.031 1.001-1.035 Urine Protein 1+ H Negative Urine Ketones 3+ H Negative Urine Blood Negative Negative /uL Urine Nitrite Negative Negative Urine Bilirubin 2+ H Negative Urine Urobilinogen 4 H Negative mg/dL Urine Leukocyte Esterase Negative Negative /uL Urine RBC 5 0 - 4 /hpf Urine WBC 6 0 - 5 /hpf Urine Squamous Epithelial Cells Few <5 /hpf Urine Bacteria Few H None Seen /hpf Urine Mucus Few None Seen Urine Glucose Normal Normal mg/dL Primary Diagnosis Elevated liver enzymes suspect choledocholithiasis Plan CT abdomen and pelvis done and was not evaluated extrahepatic and common bile duct. Ultrasound abdomen done and was not sent common bile duct. Patient was unable to transfer and requiring MRCP for transferring Tbili trended up MRCP ordered GI consult for possible choledocholithiasis Pain control Full code IV fluids as needed Lovenox for DVT prophylaxis PPI for GI prophylax regular diet Plan discussed with: Patient Problems List: (1) Elevated LFTs Status: Acute (2) Intractable abdominal pain Status: Acute Date of Service: Feb 20, 2024 Billing Provider: JESSE ENRIQUEZ MD Common Visit Codes: [id number] INP/OBS CARE (HIGH) JESSE ENRIQUEZ MD Feb 20, 2024 17:31
--- NOTE | 2024-02-20 18:28 | DVH ---
MRI Abdomen, without IV Contrast Exam Date: 02/20/2024 05:27 PM Comparison: None History: rule out choledocholithiasis Technique: Multisequence multiplanar MRI images were obtained of the abomen. MRCP including 3D SPACE, Radial 3D slabs and SPACE 3D MIP images Findings: Liver: The liver is normal in size without focal lesions. Normal liver contour. Spleen: Unremarkable. Pancreas: The pancreas is normal in appearance without focal lesions. Gallbladder and ducts: Gallbladder is surgically absent. There is intrahepatic and extrahepatic bili yoseph dilation. No choledocholithiasis. The pancreatic duct is within normal limits. Adrenal glands: Unremarkable. Kidneys: Normal enhancement without suspicious lesions or hydronephrosis. Visualized bowel: Grossly unremarkable. Vasculature: Unremarkable. Lymphadenopathy: No evidence for lymphadenopathy. Ascites: Absent. Musculoskeletal: Bone marrow signal is normal. IMPRESSION: 1. Dilated intrahepatic and extrahepatic bile ducts which can be normal status post cholecystectomy. No choledocholithiasis. HS:Jose
[2024-02-20] MEDS ORDERED: HYDROmorphone HCL 2 MG/ML VL/or syr IV PRN (18:45)
[2024-02-20] MEDS ORDERED: ACETAMINOPHEN 325 MG TAB PO PRN (18:45)
[2024-02-20] MEDS: MORPHINE SULFATE 4 MG/ML SYR/VIAL IV ONE (18:49)
[2024-02-20 19:30] VITALS: PULSE 72; RESP 16; O2SAT 98
[2024-02-20] MEDS: LACTATED RINGER'S 1,000 ML IV ONE (20:32)
[2024-02-20 21:00] VITALS: BP 164/83; PULSE 53; RESP 16; TEMP 97.9; O2SAT 100
[2024-02-20 21:10] VITALS: PULSE 53; RESP 18; O2SAT 100
[2024-02-21] VITALS (7 sets, daily range): BP systolic 104–152; BP diastolic 60–96; PULSE 63–83; RESP 14–18; TEMP 97.6–98.7; O2SAT 97–100
[2024-02-21] MEDS: SODIUM CHLOR 0.9% PF (SALINE LOCK) 10ML VIAL/SYR IV SCH (00:17)
[2024-02-21 06:07] LABS: Basophils # (auto) 0 10 ^3/uL (0-0.2); Basophils % (auto) 1.1 % (0.0-2.0); Eosinophils # (auto) 0.2 10 ^3/uL (0-0.8); Eosinophils % (auto) 3.8 % (0.0-7.0); Hematocrit 38.3 % (36.0-46.0); Hemoglobin 12.8 g/dL (12.2-16.2); Lymphocytes # (auto) 0.9 10 ^3/uL (0.4-5.4); Lymphocytes % (auto) 19.7 % (10.0-50.0); Mean Corpuscular Hemoglobin 29.5 pg (28.0-32.0); Mean Corpuscular Hgb Conc. 33.5 g/dL (32.0-36.0); Mean Corpuscular Volume 87.9 fL (80.0-100.0); Monocytes # (auto) 0.4 10 ^3/uL (0-1.3); Neutrophils % (auto) 67.4 % (37.0-80.0); Platelet Count (auto) 210 10^3/uL (140-450); Red Blood Cells 4.35 10^6/uL (4.0-5.20); Red Cell Distribution Width 13.4 % (11.8-14.3); White Blood Cell 4.5 10^3/uL (4.4-10.8)
[2024-02-21 06:39] LABS: Alanine Aminotransferase 309 U/L (7-40); Albumin 3.9 g/dL (3.2-4.8); Alkaline Phosphatase 397 U/L (46-116); Anion Gap 13 (5-15); Aspartate Aminotransferase 183 U/L (13-40); BUN/Creatinine Ratio 9.8 (10.0-20.0); Blood Urea Nitrogen 5 mg/dL (9-23); Calcium 9.1 mg/dL (8.7-10.4); Carbon Dioxide 20 mmol/L (20-31); Chloride 106 mmol/L (98-107); Glucose 72 mg/dL (74-106); Potassium 3.3 mmol/L (3.5-5.1); Sodium 139 mmol/L (136-145)
[2024-02-21 06:40] LABS: Total Protein 6.3 g/dL (5.7-8.2)
[2024-02-21] MEDS: HYDROcodone-ACET 5/325MG TAB PO PRN (09:37)
[2024-02-21] MEDS: ONDANSETRON HCL 4 MG/2 ML VIAL IV PRN (09:37)
[2024-02-21] MEDS: ENOXAPARIN SOD 40 MG/0.4 ML SYRINGE SC SCH (09:38)
--- NOTE | 2024-02-21 21:12 | DVHPN2 ---
Subjective History of Present Illness 33 y/o F, with a Hx of cholecystectomy, , preeclampsia, and EtOH use, presents with c/o non-radiating, RUQ abdominal pain, nausea, vomiting, and constipation since 1300, today. Patient endorses on unprovoked and sudden onset of symptoms, this afternoon, that has been persisting since. Patient comments on vomitus being green and having white phlegm in it in addition to having an associated "heart burn" sensation. Patient also informs of recent cholecystectomy 2.5 weeks ago and 3 months ago. Patient endorses on no further relevant or pertinent past medical or surgical Hx in addition to recent stress, injuries, sick contact, travel, spoiled food intake, or substance use/exposure. Patient denies having any diarrhea, urinary symptoms, fever, chills, or other associated symptoms or modifiers at this time. update 02/20 - still has pain and nausea although much improved from admission. unable to tolerate food Reviewed: H&P Changes from previous H/P or p: No Changes General: Per HPI Objective Vitals Vital Signs Date Time Temp Pulse Resp B/P (MAP) Pulse Ox O2 Delivery O2 Flow Rate FiO2 02/21/24 16:47 98.7 66 18 146/87 (106) 99 98.7 02/21/24 08:10 Room Air* 0 21 Intake/Output Intake and Output 02/21/24 07:00 Intake Total 350 ml Balance 350 ml Intake Oral 350 ml # Voids 2 Exam GEN: Healthy appearing, well-developed, NAD. PSYCH: Good Judgment. AOx3. Normal memory, mood, and affect. HEENT: NCAT, PERRLA, MMM. CV: RRR, no m/r/g. LUNGS: CTAB, no w/r/c. ABD: epigsatric ttp. : N/A EXT: No clubbing, cyanosis, or edema. skin is Warm, well perfused. No skin rashes or abnormal lesions. NEURO: Ambulating with no limitations. No focal deficits. Medications Current Medications Medications Dose Ordered Sig/Louie Route Start Time Stop Time Status Last Admin Dose Admin Sodium Chloride 10 ml Q8HR IV 02/20/24 22:00 02/21/24 18:51 10 ML Docusate Sodium 100 mg BIDPRN PRN PO 02/20/24 18:45 Acetaminophen 650 mg Q6HP PRN PO 02/20/24 18:45 Acetaminophen/ Hydrocodone Bitart 1 tab Q4HP PRN PO 02/20/24 18:45 02/21/24 20:42 1 TAB Hydromorphone HCl 0.5 mg Q4HP PRN IV 02/20/24 18:45 Ondansetron HCl 4 mg Q4HP PRN IV 02/20/24 18:45 02/21/24 18:52 4 MG Enoxaparin Sodium 40 mg DAILY SC 02/21/24 10:00 Laboratory Results Laboratory Tests 02/21/24 05:15 Chemistry Test 02/21/24 05:15 Albumin 3.9 g/dL (3.2-4.8) Calcium Level 9.1 mg/dL (8.7-10.4) Total Protein 6.3 g/dL (5.7-8.2) LFT Test 02/21/24 05:15 Alanine Aminotransferase (ALT) 309 U/L (7-40) H Alkaline Phosphatase 397 U/L (46-116) H Aspartate Amino Transferase (AST) 183 U/L (13-40) H Total Bilirubin 4.0 mg/dL (0.2-1.0) H Urinalysis Test 02/19/24 18:25 Urine Color Dark-yellow (Yellow) Urine Clarity Turbid (Clear) H Urine pH 6.0 (5.0-9.0) Urine Specific [place] 1.031 (1.001-1.035) Urine Protein 1+ (Negative) H Urine Ketones 3+ (Negative) H Urine Blood Negative /uL (Negative) Urine Nitrite Negative (Negative) Urine Bilirubin 2+ (Negative) H Urine Urobilinogen 4 mg/dL (Negative) H Urine Leukocyte Esterase Negative /uL (Negative) Urine RBC 5 /hpf (0 - 4) Urine WBC 6 /hpf (0 - 5) Urine Squamous Epithelial Cells Few /hpf (<5) Urine Bacteria Few /hpf (None Seen) H Urine Mucus Few (None Seen) Urine Glucose Normal mg/dL (Normal) Labs and/or images reviewed: Labs reviewed by me, Image(s) reviewed by me Assessment/Plan Assessment/Plan abdominal pain PO intolerance Hx recent cholecystectomy hyperbilirubinemia - abdominal pain epigastrium - lipase wnl; ALP, LFTs elvated, Tbili 2.5 to 4.0 - CT neg for stones and c/w prior cholecystectomy. - MRCP w dilated intra/extrahepatic ducts but no stones. the dilations can be normal fingin in s/p cholecystectomy - on prn anagelia - pepcid bid - dvt ppx - zofran prn for nausea - fluids conservatively hypokalemia - replete. likely 2/2 vomiting npo > CLD. pepcid bid dvt ppx medsurg Plan discussed with: Patient My Orders Orders - NGUYỄN ESCALANTE MD Procedure Category Date Status Time Clear Liq Diet DIET 02/21/24 Transmitted Lunch Date of Service: Feb 21, 2024 Billing Provider: NGUYỄN ESCALANTE MD Common Visit Codes: [id number] INP/OBS CARE(HIGH) NGUYỄN ESCALANTE MD Feb 21, 2024 21:12
[2024-02-22] VITALS (7 sets, daily range): BP systolic 127–153; BP diastolic 79–97; PULSE 68–87; RESP 14–18; TEMP 97.6–98.2; O2SAT 97–100
[2024-02-22 05:49] LABS: Basophils # (auto) 0.1 10 ^3/uL (0-0.2); Eosinophils # (auto) 0.2 10 ^3/uL (0-0.8); Eosinophils % (auto) 2.9 % (0.0-7.0); Hematocrit 42.7 % (36.0-46.0); Hemoglobin 14.2 g/dL (12.2-16.2); Lymphocytes # (auto) 0.8 10 ^3/uL (0.4-5.4); Lymphocytes % (auto) 14.8 % (10.0-50.0); Mean Corpuscular Hemoglobin 29.3 pg (28.0-32.0); Mean Corpuscular Hgb Conc. 33.2 g/dL (32.0-36.0); Mean Corpuscular Volume 88.3 fL (80.0-100.0); Monocytes # (auto) 0.5 10 ^3/uL (0-1.3); Monocytes % (auto) 8.3 % (0.0-12.0); Platelet Count (auto) 227 10^3/uL (140-450); Red Blood Cells 4.84 10^6/uL (4.0-5.20); Red Cell Distribution Width 13.8 % (11.8-14.3); White Blood Cell 5.5 10^3/uL (4.4-10.8)
[2024-02-22 06:06] LABS: Alanine Aminotransferase 309 U/L (7-40); Albumin 4.2 g/dL (3.2-4.8); Alkaline Phosphatase 456 U/L (46-116); Anion Gap 13 (5-15); Aspartate Aminotransferase 156 U/L (13-40); Calcium 9.5 mg/dL (8.7-10.4); Carbon Dioxide 24 mmol/L (20-31); Chloride 102 mmol/L (98-107); Glucose 102 mg/dL (74-106); Sodium 139 mmol/L (136-145)
[2024-02-22 06:07] LABS: Bilirubin, Total 5.9 mg/dL (0.2-1.0)
[2024-02-22 06:10] LABS: BUN/Creatinine Ratio 9.4 (10.0-20.0); Blood Urea Nitrogen < 5 mg/dL (9-23)
--- NOTE | 2024-02-22 08:52 | DVH ---
ULTRASOUND ABDOMEN LIMITED INDICATION: Abdominal pain.. TECHNIQUE: Multiple real-time sonographic images of the abdomen were obtained. COMPARISON: US ABDOMEN LIMITED on DOS: 02/19/24, US GALLBLADDER on DOS: 01/28/24 FINDINGS: The gallbladder is surgically absent. The proximal common bile duct measures 9.6 mm. The midportion measures 10.2 mm. Distal common bile duct measures 12.8 mm. There is no evidence of choledocholithias is. IMPRESSION: 1. Dilated extrahepatic bile duct as described above without sonographic evidence of choledocholithia sis. HS:Y
[2024-02-22] MEDS: ONDANSETRON ODT 4 MG TAB PO SCH (09:30)
[2024-02-22] MEDS: POTASSIUM CHLORIDE 60 MEQ, LIDOCAINE 1% (LOCAL ANESTH.) 6 ML in SODIUM CHL 0.9% 500 ML IV ONE (09:31)
[2024-02-22] MEDS: METOCLOPRAMIDE HCL 5MG/ml INJ 2ml VIAL IV PRN (12:25)
[2024-02-22] MEDS: DOCUSATE SOD 100 MG CAP PO PRN (12:25)
--- NOTE | 2024-02-22 12:56 | DVHINCON2 ---
GI Consult Consult Note GI consult note Date of Consultation: 02/22/2024 Chief Complaint: LFTs ALP and right upper quadrant pain negative MRCP Referring Physician: Dr. Bucio H&P: 33-year-old female admitted with right upper quadrant abdominal pain for three days, pain is radiating to her back. Patient has nausea. No vomiting, last bowel movement on Sunday, patient feels like she is not able to pass gas Patient is status post cholecystectomy 2-1/2 weeks ago. three months ago Patient denies alcohol use. Occasional Tylenol use only Past Medical History: Denies Past 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, Social History: NO smoking, drinking ETOH and use of illegal drugs. Family History: Noncontributory Review of Systems: Constitutional: no fever, chill, weight loss HEENT: no eye pain, no hearing loss, no oral lesion, no scleral icterus Heart: no chest pain, no chest pressure Lung: no cough, no dyspnea with exertion Abdomen: see HPI Physical exam: General: NAD, AAOX3 Chest: lung mcduffie clear to auscultation Heart: RRR, no murmur Abdomen: + RUQ tenderness to palpation, +BS Labs: Labs Test 02/22/24 05:17 02/19/24 18:40 02/19/24 18:25 Range/Units White Blood Count 5.5 4.4-10.8 10^3/uL Red Blood Count 4.84 4.0-5.20 10^6/uL Hemoglobin 14.2 12.2-16.2 g/dL Hematocrit 42.7 # 36.0-46.0 % Mean Corpuscular Volume 88.3 80.0-100.0 fL Mean Corpuscular Hemoglobin 29.3 28.0-32.0 pg Mean Corpuscular Hemoglobin Concent 33.2 32.0-36.0 g/dL Red Cell Distribution Width 13.8 11.8-14.3 % Platelet Count 227 140-450 10^3/uL Mean Platelet Volume 8.6 6.9-10.8 fL Neutrophils (%) (Auto) 73.0 37.0-80.0 % Lymphocytes (%) (Auto) 14.8 10.0-50.0 % Monocytes (%) (Auto) 8.3 0.0-12.0 % Eosinophils (%) (Auto) 2.9 0.0-7.0 % Basophils (%) (Auto) 1.0 0.0-2.0 % Neutrophils # (Auto) 4.0 1.6-8.6 10 ^3/uL Lymphocytes # (Auto) 0.8 0.4-5.4 10 ^3/uL Monocytes # (Auto) 0.5 0-1.3 10 ^3/uL Eosinophils # (Auto) 0.2 0-0.8 10 ^3/uL Basophils # (Auto) 0.1 0-0.2 10 ^3/uL Nucleated Red Blood Cells 0.0 % Sodium Level 139 136-145 mmol/L Potassium Level 3.0 L 3.5-5.1 mmol/L Chloride Level 102 98-107 mmol/L Carbon Dioxide Level 24 20-31 mmol/L Anion Gap 13 5-15 Blood Urea Nitrogen < 5 L 9-23 mg/dL Creatinine 0.53 L 0.550-1.02 mg/dL Glomerular Filtration Rate Calc 124 >90 mL/min BUN/Creatinine Ratio 9.4 L 10.0-20.0 Serum Glucose 102 74-106 mg/dL Calcium Level 9.5 8.7-10.4 mg/dL Total Bilirubin 5.9 H 0.2-1.0 mg/dL Direct Bilirubin 4.2 H <0.3 mg/dL Aspartate Amino Transferase (AST) 156 H 13-40 U/L Alanine Aminotransferase (ALT) 309 H 7-40 U/L Alkaline Phosphatase 456 H 46-116 U/L Lactate Dehydrogenase 210 120-246 U/L Total Protein 7.0 5.7-8.2 g/dL Albumin 4.2 3.2-4.8 g/dL Lactic Acid Level 0.7 0.4-2.0 mmol/L Lipase 23 12-53 U/L Beta HCG, Quantitative 0.7 L 1.5-4.2 mIU/mL Urine Color Dark-yellow Yellow Urine Clarity Turbid H Clear Urine pH 6.0 5.0-9.0 Urine Specific [place] 1.031 1.001-1.035 Urine Protein 1+ H Negative Urine Ketones 3+ H Negative Urine Blood Negative Negative /uL Urine Nitrite Negative Negative Urine Bilirubin 2+ H Negative Urine Urobilinogen 4 H Negative mg/dL Urine Leukocyte Esterase Negative Negative /uL Urine RBC 5 0 - 4 /hpf Urine WBC 6 0 - 5 /hpf Urine Squamous Epithelial Cells Few <5 /hpf Urine Bacteria Few H None Seen /hpf Urine Mucus Few None Seen Urine Glucose Normal Normal mg/dL Imaging: CT abdomen pelvis IMPRESSION: 1. Gallbladder is been surgically removed. 2. No CT findings to suggest bowel obstruction. 3. Stool noted throughout the colon. 4. No nephrolithiasis or hydronephrosis. Abdominal ultrasound Impression: Unremarkable sonographic study of the right upper quadrant of the abdomen. Status post cholecystectomy. MRCP IMPRESSION: 1. Dilated intrahepatic and extrahepatic bile ducts which can be normal status post cholecystectomy. No choledocholithiasis. Abdominal ultrasound IMPRESSION: 1. Dilated extrahepatic bile duct as described above without sonographic evidence of choledocholithiasis. Assessment: Abdominal pain LFTs elevated Nausea SP cholecystectomy Plan: Discussed with Dr. Bhagat IV antibiotics Reglan, stool softeners Surgical consult Monitor lab If elevated LFTs continue, recommend higher level of care, for possible ERCP Discussed plan with patient and RN Thank you for this consult Date of Service: Feb 22, 2024 Billing Provider: FIDEL FELIX Common Visit Codes: CONSULT ONLY Consultation Codes: [id number] CONSULT <60MIN FIDEL FELIX Feb 22, 2024 12:56
--- NOTE | 2024-02-22 15:00 | DVHINCON2 ---
Date of service: Feb 22, 2024 Family History: Diabetes mellitus G8 FATHER FH: multiple sclerosis G8 MOTHER Allergies: Coded Allergies: NO KNOWN ALLERGIES (Unverified , 09/14/23) Home Meds Active Scripts Ergocalciferol (VITAMIN D 72890 UNIT) 50,[address] [place], [address] UNIT PO Q7D for 90 Days, #12 CAP Prov:AQUILES GARZON RESIDENT 02/01/24 Current Medications Current Medications Medications (Trade) Dose Ordered Sig/Louie Route PRN Reason Start Time Stop Time Status Last Admin Ondansetron HCl (Zofran Po) 4 mg Q4H PO 02/22/24 08:15 02/22/24 09:30 Metoclopramide HCl (Reglan Injection) 10 mg Q8HPRN PRN IV NAUSEA / VOMITING 02/22/24 12:00 02/22/24 12:25 Vital Signs Vital Signs Date Time Temp Pulse Resp B/P (MAP) Pulse Ox O2 Delivery O2 Flow Rate FiO2 02/22/24 12:51 98.2 76 18 143/95 (111) 97 98.2 02/21/24 20:00 Room Air* 0 21 Labs/Diagnostic Data Labs Test 02/22/24 14:18 02/22/24 05:17 02/19/24 18:40 02/19/24 18:25 Range/Units White Blood Count 5.5 4.4-10.8 10^3/uL Red Blood Count 4.84 4.0-5.20 10^6/uL Hemoglobin 14.2 12.2-16.2 g/dL Hematocrit 42.7 # 36.0-46.0 % Mean Corpuscular Volume 88.3 80.0-100.0 fL Mean Corpuscular Hemoglobin 29.3 28.0-32.0 pg Mean Corpuscular Hemoglobin Concent 33.2 32.0-36.0 g/dL Red Cell Distribution Width 13.8 11.8-14.3 % Platelet Count 227 140-450 10^3/uL Mean Platelet Volume 8.6 6.9-10.8 fL Neutrophils (%) (Auto) 73.0 37.0-80.0 % Lymphocytes (%) (Auto) 14.8 10.0-50.0 % Monocytes (%) (Auto) 8.3 0.0-12.0 % Eosinophils (%) (Auto) 2.9 0.0-7.0 % Basophils (%) (Auto) 1.0 0.0-2.0 % Neutrophils # (Auto) 4.0 1.6-8.6 10 ^3/uL Lymphocytes # (Auto) 0.8 0.4-5.4 10 ^3/uL Monocytes # (Auto) 0.5 0-1.3 10 ^3/uL Eosinophils # (Auto) 0.2 0-0.8 10 ^3/uL Basophils # (Auto) 0.1 0-0.2 10 ^3/uL Nucleated Red Blood Cells 0.0 % Sodium Level 139 136-145 mmol/L Potassium Level 3.0 L 3.5-5.1 mmol/L Chloride Level 102 98-107 mmol/L Carbon Dioxide Level 24 20-31 mmol/L Anion Gap 13 5-15 Blood Urea Nitrogen < 5 L 9-23 mg/dL Creatinine 0.53 L 0.550-1.02 mg/dL Glomerular Filtration Rate Calc 124 >90 mL/min BUN/Creatinine Ratio 9.4 L 10.0-20.0 Serum Glucose 102 74-106 mg/dL Calcium Level 9.5 8.7-10.4 mg/dL Total Bilirubin 5.9 H 0.2-1.0 mg/dL Direct Bilirubin 4.2 H <0.3 mg/dL Aspartate Amino Transferase (AST) 156 H 13-40 U/L Alanine Aminotransferase (ALT) 309 H 7-40 U/L Alkaline Phosphatase 456 H 46-116 U/L Lactate Dehydrogenase 210 120-246 U/L Total Protein 7.0 5.7-8.2 g/dL Albumin 4.2 3.2-4.8 g/dL Lactic Acid Level 0.7 0.4-2.0 mmol/L Lipase 23 12-53 U/L Beta HCG, Quantitative 0.7 L 1.5-4.2 mIU/mL Urine Color Dark-yellow Yellow Urine Clarity Turbid H Clear Urine pH 6.0 5.0-9.0 Urine Specific [place] 1.031 1.001-1.035 Urine Protein 1+ H Negative Urine Ketones 3+ H Negative Urine Blood Negative Negative /uL Urine Nitrite Negative Negative Urine Bilirubin 2+ H Negative Urine Urobilinogen 4 H Negative mg/dL Urine Leukocyte Esterase Negative Negative /uL Urine RBC 5 0 - 4 /hpf Urine WBC 6 0 - 5 /hpf Urine Squamous Epithelial Cells Few <5 /hpf Urine Bacteria Few H None Seen /hpf Urine Mucus Few None Seen Urine Glucose Normal Normal mg/dL Assessment [id number] RIUQ PAIN VSS AFEBRILE TENDER RUQ S/P LAP VIKAS LFT ELEVATED MRCP DILATED INTRAHEPATIC DUCTS NO CBD STONE CLOSE OBSERVATION REPEAT LFT TO DETERMINE THE NEED FOR ERCP Plan discussed with: Patient MARGAUX CROOKS MD Feb 22, 2024 15:00
[2024-02-22] MEDS: LACTULOSE 20Gm/30ML SOLN PO ONE (15:50)
--- NOTE | 2024-02-22 18:24 | DVHINCON2 ---
DATE OF CONSULTATION: 02/22/2024 HISTORY OF PRESENT ILLNESS: The patient is a 33 years old, coming in with abdominal pain. No nausea, no vomiting. No hematemesis or melena. No bleeding per rectum. PAST MEDICAL HISTORY: No hypertension, diabetes. PAST SURGICAL HISTORY: Recent cholecystectomy and . PHYSICAL EXAMINATION: VITAL SIGNS: Afebrile, stable signs. HEENT: With no evidence of pallor, cyanosis, or jaundice. NECK: Supple, nontender with no thyromegaly, lymphadenopathy. CHEST AND LUNGS: Clear. HEART: Within normal limits. ABDOMEN: Soft, tender in the upper abdomen. No rebound. EXTREMITIES: Unremarkable. NEUROLOGIC: Intact. CLINICAL IMPRESSION: Elevated liver enzymes, rule out CBD stone. MRCP is negative for CBD stone, but just a dilated CBD and intrahepatic ductal system. PLAN: Will be is to monitor the liver enzymes. Treat her conservatively. No indication for urgent surgery at this time and then the liver enzymes trend downwards, then she can be managed conservatively and if not an ileostomy would be indicated, for which she had to be transferred to higher level of care and at this point we manage to continue close observation and repeat her liver enzymes testing tomorrow. Domenico Bhagat MD RG TID: [id number] RECEIPT: [id number] cc: Wm Henning MD
--- NOTE | 2024-02-22 22:23 | DVHPN2 ---
Subjective History of Present Illness 33 y/o F, with a Hx of cholecystectomy, , preeclampsia, and EtOH use, presents with c/o non-radiating, RUQ abdominal pain, nausea, vomiting, and constipation since 1300, today. Patient endorses on unprovoked and sudden onset of symptoms, this afternoon, that has been persisting since. Patient comments on vomitus being green and having white phlegm in it in addition to having an associated "heart burn" sensation. Patient also informs of recent cholecystectomy 2.5 weeks ago and 3 months ago. Patient endorses on no further relevant or pertinent past medical or surgical Hx in addition to recent stress, injuries, sick contact, travel, spoiled food intake, or substance use/exposure. Patient denies having any diarrhea, urinary symptoms, fever, chills, or other associated symptoms or modifiers at this time. update 02/20 - still has pain and nausea although much improved from admission. unable to tolerate food --02/21-patient still having pain, still unable due to tolerate p.o.,. The LFTs has ceased to decline. Repeat right upper quadrant ultrasound shows worsening CBD dilation. Physical exam remains unchanged (tender to palpation right upper quadrant, tender to palpation epigastrium, Morales sign positive). Consulting GI, patient will need OC for possible ERCP plus/minus biliary stent, transfers started Reviewed: H&P Changes from previous H/P or p: No Changes General: Per HPI Objective Vitals Vital Signs Date Time Temp Pulse Resp B/P (MAP) Pulse Ox O2 Delivery O2 Flow Rate FiO2 02/22/24 21:00 97.9 69 14 153/97 (115) 100 97.9 02/22/24 08:05 Room Air* 0 21 Intake/Output Intake and Output 02/22/24 07:00 Intake Total 1200 ml Output Total 1200 ml Balance 0 ml Intake Oral 1200 ml Output Urine Total 1200 ml # Voids 3 Exam GEN: Healthy appearing, well-developed, NAD. PSYCH: Good Judgment. AOx3. Normal memory, mood, and affect. HEENT: NCAT, PERRLA, MMM. CV: RRR, no m/r/g. LUNGS: CTAB, no w/r/c. ABD: epigsatric ttp. : N/A EXT: No clubbing, cyanosis, or edema. skin is Warm, well perfused. No skin rashes or abnormal lesions. NEURO: Ambulating with no limitations. No focal deficits. Medications Current Medications Medications Dose Ordered Sig/Louie Route Start Time Stop Time Status Last Admin Dose Admin Sodium Chloride 10 ml Q8HR IV 02/20/24 22:00 02/22/24 21:15 10 ML Docusate Sodium 100 mg BIDPRN PRN PO 02/20/24 18:45 02/22/24 21:15 100 MG Acetaminophen 650 mg Q6HP PRN PO 02/20/24 18:45 Acetaminophen/ Hydrocodone Bitart 1 tab Q4HP PRN PO 02/20/24 18:45 02/22/24 21:16 1 TAB Hydromorphone HCl 0.5 mg Q4HP PRN IV 02/20/24 18:45 Enoxaparin Sodium 40 mg DAILY SC 02/21/24 10:00 Metoclopramide HCl 10 mg Q8HPRN PRN IV 02/22/24 12:00 02/22/24 21:21 10 MG Laboratory Results Laboratory Tests 02/22/24 05:17 Chemistry Test 02/22/24 05:17 Albumin 4.2 g/dL (3.2-4.8) Calcium Level 9.5 mg/dL (8.7-10.4) Total Protein 7.0 g/dL (5.7-8.2) LFT Test 02/22/24 05:17 Alanine Aminotransferase (ALT) 309 U/L (7-40) H Alkaline Phosphatase 456 U/L (46-116) H Aspartate Amino Transferase (AST) 156 U/L (13-40) H Direct Bilirubin 4.2 mg/dL (<0.3) H Total Bilirubin 5.9 mg/dL (0.2-1.0) H Urinalysis Test 02/19/24 18:25 Urine Color Dark-yellow (Yellow) Urine Clarity Turbid (Clear) H Urine pH 6.0 (5.0-9.0) Urine Specific [place] 1.031 (1.001-1.035) Urine Protein 1+ (Negative) H Urine Ketones 3+ (Negative) H Urine Blood Negative /uL (Negative) Urine Nitrite Negative (Negative) Urine Bilirubin 2+ (Negative) H Urine Urobilinogen 4 mg/dL (Negative) H Urine Leukocyte Esterase Negative /uL (Negative) Urine RBC 5 /hpf (0 - 4) Urine WBC 6 /hpf (0 - 5) Urine Squamous Epithelial Cells Few /hpf (<5) Urine Bacteria Few /hpf (None Seen) H Urine Mucus Few (None Seen) Urine Glucose Normal mg/dL (Normal) Labs and/or images reviewed: Labs reviewed by me, Image(s) reviewed by me Assessment/Plan Assessment/Plan Update-02/21-patient still having pain, still unable due to tolerate p.o.,. The LFTs has ceased to decline. Repeat right upper quadrant ultrasound shows worsening CBD dilation. Physical exam remains unchanged (tender to palpation right upper quadrant, tender to palpation epigastrium, Morales sign positive). Consulting GI, patient will need HL OC for possible ERCP plus/minus biliary stent, transfers started abdominal pain PO intolerance Hx recent cholecystectomy hyperbilirubinemia - abdominal pain epigastrium - lipase wnl; ALP, LFTs elvated, Tbili 2.5 to 4.0 - CT neg for stones and c/w prior cholecystectomy. - MRCP w dilated intra/extrahepatic ducts but no stones. the dilations can be normal fingin in s/p cholecystectomy - on prn analgesia - pepcid bid - dvt ppx - zofran prn for nausea - fluids conservatively hypokalemia - replete. likely 2/2 vomiting npo > CLD. pepcid bid dvt ppx medsurg Plan discussed with: Patient My Orders Orders - NGUYỄN ESCALANTE MD Procedure Category Date Status Time Abdomen Limited US 02/22/24 Resulted 08:01 Haptoglobin LAB 02/22/24 In Process 08:04 * Gi Dvh Meat Wrapper CONS 02/22/24 Transmitted 09:08 * Head Turning Machine Operator CONS 02/22/24 Transmitted Consult Date of Service: Feb 22, 2024 Billing Provider: NGUYỄN ESCALANTE MD Common Visit Codes: [id number] INP/OBS CARE(HIGH) NGUYỄN ESCALANTE MD Feb 22, 2024 22:23
[2024-02-23 01:00] VITALS: BP_SYST 107; BP_SYST 134; BP_DIAS 65; BP_DIAS 96; PULSE 64; PULSE 83; RESP 14; RESP 16; TEMP 97.8; TEMP 98; O2SAT 98; O2SAT 99
[2024-02-23 05:00] VITALS: BP 143/98; PULSE 85; RESP 14; TEMP 98.1; O2SAT 99
[2024-02-23 06:26] LABS: Basophils # (auto) 0 10 ^3/uL (0-0.2); Basophils % (auto) 0.8 % (0.0-2.0); Eosinophils # (auto) 0.1 10 ^3/uL (0-0.8); Eosinophils % (auto) 2.4 % (0.0-7.0); Hematocrit 41.3 % (36.0-46.0); Lymphocytes # (auto) 0.9 10 ^3/uL (0.4-5.4); Lymphocytes % (auto) 18.5 % (10.0-50.0); Mean Corpuscular Hemoglobin 29.7 pg (28.0-32.0); Mean Corpuscular Hgb Conc. 33.8 g/dL (32.0-36.0); Mean Corpuscular Volume 87.8 fL (80.0-100.0); Monocytes # (auto) 0.4 10 ^3/uL (0-1.3); Monocytes % (auto) 8.6 % (0.0-12.0); Neutrophils # (auto) 3.4 10 ^3/uL (1.6-8.6); Neutrophils % (auto) 69.7 % (37.0-80.0); Platelet Count (auto) 197 10^3/uL (140-450); Red Blood Cells 4.71 10^6/uL (4.0-5.20); Red Cell Distribution Width 13.9 % (11.8-14.3); White Blood Cell 4.9 10^3/uL (4.4-10.8)
[2024-02-23 06:49] LABS: Alanine Aminotransferase 251 U/L (7-40); Albumin 4.1 g/dL (3.2-4.8); Alkaline Phosphatase 487 U/L (46-116); Anion Gap 10 (5-15); Aspartate Aminotransferase 97 U/L (13-40); BUN/Creatinine Ratio 10.4 (10.0-20.0); Bilirubin, Total 6.5 mg/dL (0.2-1.0); Blood Urea Nitrogen < 5 mg/dL (9-23); Calcium 9.7 mg/dL (8.7-10.4); Carbon Dioxide 25 mmol/L (20-31); Chloride 102 mmol/L (98-107); Glucose 86 mg/dL (74-106); Potassium 3.3 mmol/L (3.5-5.1); Sodium 137 mmol/L (136-145); Total Protein 6.8 g/dL (5.7-8.2)
[2024-02-23 09:00] VITALS: BP 134/97; PULSE 85; RESP 15; TEMP 98.2; O2SAT 99
[2024-02-23 13:00] VITALS: BP 139/107; PULSE 84; RESP 15; TEMP 97.6; O2SAT 97
--- NOTE | 2024-02-23 16:47 | DVHPN2 ---
Progress Note - Dictate Date Seen: Feb 23, 2024 Medical Necessity Reason Pt with a Central, PICC or Fol: No Subjective No new complaints today Total bilirubin has gone up to 6.5 Transaminitis improving slightly vital signs Vital Sign Date Time Temp Pulse Resp B/P (MAP) Pulse Ox O2 Delivery O2 Flow Rate FiO2 02/23/24 13:00 97.6 84 15 139/107 (118) 97 97.6 02/23/24 08:15 Room Air* 0 21 Total Intake and Output 02/22/24 02/22/24 02/23/24 14:59 22:59 06:59 Intake Total 1800 ml 800 ml Balance 1800 ml 800 ml medications Current Medications Medications Dose Ordered Sig/Louie Route Start Time Stop Time Status Last Admin Dose Admin Sodium Chloride 10 ml Q8HR IV 02/20/24 22:00 02/23/24 13:40 10 ML Docusate Sodium 100 mg BIDPRN PRN PO 02/20/24 18:45 02/22/24 21:15 100 MG Acetaminophen 650 mg Q6HP PRN PO 02/20/24 18:45 Acetaminophen/ Hydrocodone Bitart 1 tab Q4HP PRN PO 02/20/24 18:45 02/22/24 21:16 1 TAB Hydromorphone HCl 0.5 mg Q4HP PRN IV 02/20/24 18:45 Enoxaparin Sodium 40 mg DAILY SC 02/21/24 10:00 Metoclopramide HCl 10 mg Q8HPRN PRN IV 02/22/24 12:00 02/22/24 21:21 10 MG objective General: NAD, AAOX3, mild scleral icterus Chest: lung mcduffie clear to auscultation Heart: RRR, no murmur Abdomen: + RUQ tenderness to palpation, +BS laboratory and microbiology Laboratory Tests 02/23/24 05:33 Test 02/23/24 05:33 Range/Units Serum Glucose 86 74-106 mg/dL Problems(with codes): (1) Dilation of biliary tract (2) Biliary colic (3) Intractable abdominal pain (4) Elevated LFTs (5) Biliary obstruction (6) Cholelithiasis Prognosis Plan I suspect the patient may have a small CBD stone that is causing obstructive symptoms and hyperbilirubinemia and colicky pain Recommend referral to higher level of care for ERCP especially as the bilirubin is rising Patient would like to get this done prior to her discharge home Plan discussed with: Patient KENNEDI CROOKS MD Feb 23, 2024 16:47
[2024-02-23 17:00] VITALS: BP 127/87; PULSE 83; RESP 18; TEMP 98.4; O2SAT 98
[2024-02-23 20:09] VITALS: BP 135/106; PULSE 77; RESP 16; TEMP 98.1; O2SAT 99
--- NOTE | 2024-02-23 20:37 | DVHPN2 ---
Subjective History of Present Illness 33 y/o F, with a Hx of cholecystectomy, , preeclampsia, and EtOH use, presents with c/o non-radiating, RUQ abdominal pain, nausea, vomiting, and constipation since 1300, today. Patient endorses on unprovoked and sudden onset of symptoms, this afternoon, that has been persisting since. Patient comments on vomitus being green and having white phlegm in it in addition to having an associated "heart burn" sensation. Patient also informs of recent cholecystectomy 2.5 weeks ago and 3 months ago. Patient endorses on no further relevant or pertinent past medical or surgical Hx in addition to recent stress, injuries, sick contact, travel, spoiled food intake, or substance use/exposure. Patient denies having any diarrhea, urinary symptoms, fever, chills, or other associated symptoms or modifiers at this time. update 02/20 - still has pain and nausea although much improved from admission. unable to tolerate food --02/21-patient still having pain, still unable due to tolerate p.o.,. The LFTs has ceased to decline. Repeat right upper quadrant ultrasound shows worsening CBD dilation. Physical exam remains unchanged (tender to palpation right upper quadrant, tender to palpation epigastrium, Morales sign positive). Consulting GI, patient will need [facility] OC for possible ERCP plus/minus biliary stent, transfers started - -02/22 - patient is feeling better but she appears more jaundiced. However, T bili his rising, ALP she has elevated, LFTs are improving. As per yesterday RU Q ultrasound finds worsening CBD dilation. Transfer was initiated, social and case workers continue to find [facility] OC for ERCP Reviewed: H&P Changes from previous H/P or p: No Changes General: Per HPI Objective Vitals Vital Signs Date Time Temp Pulse Resp B/P (MAP) Pulse Ox O2 Delivery O2 Flow Rate FiO2 02/23/24 20:09 98.1 77 16 135/106 (116) 99 98.1 02/23/24 08:15 Room Air* 0 21 Intake/Output Intake and Output 02/23/24 06:59 Intake Total 2600 ml Balance 2600 ml Intake Oral 2600 ml # Voids 13 Exam GEN: Healthy appearing, well-developed, NAD. PSYCH: Good Judgment. AOx3. Normal memory, mood, and affect. HEENT: NCAT, PERRLA, MMM. CV: RRR, no m/r/g. LUNGS: CTAB, no w/r/c. ABD: epigsatric ttp. : N/A EXT: No clubbing, cyanosis, or edema. skin is Warm, well perfused. No skin rashes or abnormal lesions. NEURO: Ambulating with no limitations. No focal deficits. Medications Current Medications Medications Dose Ordered Sig/Louie Route Start Time Stop Time Status Last Admin Dose Admin Sodium Chloride 10 ml Q8HR IV 02/20/24 22:00 02/23/24 20:10 10 ML Docusate Sodium 100 mg BIDPRN PRN PO 02/20/24 18:45 02/23/24 20:04 100 MG Acetaminophen 650 mg Q6HP PRN PO 02/20/24 18:45 Acetaminophen/ Hydrocodone Bitart 1 tab Q4HP PRN PO 02/20/24 18:45 02/23/24 20:09 1 TAB Hydromorphone HCl 0.5 mg Q4HP PRN IV 02/20/24 18:45 Enoxaparin Sodium 40 mg DAILY SC 02/21/24 10:00 Metoclopramide HCl 10 mg Q8HPRN PRN IV 02/22/24 12:00 02/22/24 21:21 10 MG Laboratory Results Laboratory Tests 02/23/24 05:33 Chemistry Test 02/23/24 05:33 Albumin 4.1 g/dL (3.2-4.8) Calcium Level 9.7 mg/dL (8.7-10.4) Total Protein 6.8 g/dL (5.7-8.2) LFT Test 02/23/24 05:33 Alanine Aminotransferase (ALT) 251 U/L (7-40) H Alkaline Phosphatase 487 U/L (46-116) H Aspartate Amino Transferase (AST) 97 U/L (13-40) H Total Bilirubin 6.5 mg/dL (0.2-1.0) H Urinalysis Test 02/19/24 18:25 Urine Color Dark-yellow (Yellow) Urine Clarity Turbid (Clear) H Urine pH 6.0 (5.0-9.0) Urine Specific [place] 1.031 (1.001-1.035) Urine Protein 1+ (Negative) H Urine Ketones 3+ (Negative) H Urine Blood Negative /uL (Negative) Urine Nitrite Negative (Negative) Urine Bilirubin 2+ (Negative) H Urine Urobilinogen 4 mg/dL (Negative) H Urine Leukocyte Esterase Negative /uL (Negative) Urine RBC 5 /hpf (0 - 4) Urine WBC 6 /hpf (0 - 5) Urine Squamous Epithelial Cells Few /hpf (<5) Urine Bacteria Few /hpf (None Seen) H Urine Mucus Few (None Seen) Urine Glucose Normal mg/dL (Normal) Labs and/or images reviewed: Labs reviewed by me, Image(s) reviewed by me Assessment/Plan Assessment/Plan Update-02/22 - patient is feeling better but she appears more jaundiced. However, T bili his rising, ALP she has elevated, LFTs are improving. As per yesterday RU Q ultrasound finds worsening CBD dilation. Transfer was initiated, social and case workers continue to find [facility] OC for ERCP abdominal pain PO intolerance Hx recent cholecystectomy hyperbilirubinemia - abdominal pain epigastrium - lipase wnl; ALP, LFTs elvated, Tbili 2.5 to 4.0 - CT neg for stones and c/w prior cholecystectomy. - MRCP w dilated intra/extrahepatic ducts but no stones. the dilations can be normal fingin in s/p cholecystectomy - on prn analgesia - pepcid bid - dvt ppx - zofran prn for nausea - fluids conservatively hypokalemia - replete. likely 2/2 vomiting npo > CLD. pepcid bid dvt ppx medsurg Plan discussed with: Patient Date of Service: Feb 23, 2024 Billing Provider: NGUYỄN ESCALANTE MD Common Visit Codes: [id number] INP/OBS CARE(HIGH) NGUYỄN ESCALANTE MD Feb 23, 2024 20:37
[2024-02-24 05:00] VITALS: BP 113/66; PULSE 75; RESP 18; TEMP 97.6; O2SAT 97
[2024-02-24 06:23] LABS: Basophils # (auto) 0.1 10 ^3/uL (0-0.2); Basophils % (auto) 0.9 % (0.0-2.0); Eosinophils # (auto) 0.3 10 ^3/uL (0-0.8); Eosinophils % (auto) 4.4 % (0.0-7.0); Hematocrit 42.5 % (36.0-46.0); Hemoglobin 14.1 g/dL (12.2-16.2); Lymphocytes % (auto) 17.4 % (10.0-50.0); Mean Corpuscular Hemoglobin 29.2 pg (28.0-32.0); Mean Corpuscular Hgb Conc. 33.2 g/dL (32.0-36.0); Mean Corpuscular Volume 88.2 fL (80.0-100.0); Monocytes # (auto) 0.4 10 ^3/uL (0-1.3); Monocytes % (auto) 6.8 % (0.0-12.0); Neutrophils # (auto) 4.2 10 ^3/uL (1.6-8.6); Neutrophils % (auto) 70.5 % (37.0-80.0); Nucleated Red Blood Cells % 0.1 %; Platelet Count (auto) 192 10^3/uL (140-450); Red Blood Cells 4.82 10^6/uL (4.0-5.20); Red Cell Distribution Width 13.8 % (11.8-14.3)
[2024-02-24 06:48] LABS: Alanine Aminotransferase 223 U/L (7-40); Alkaline Phosphatase 523 U/L (46-116); Anion Gap 9 (5-15); Aspartate Aminotransferase 59 U/L (13-40); Calcium 9.8 mg/dL (8.7-10.4); Carbon Dioxide 26 mmol/L (20-31); Chloride 103 mmol/L (98-107); Glucose 90 mg/dL (74-106); Potassium 3.3 mmol/L (3.5-5.1); Sodium 138 mmol/L (136-145)
[2024-02-24 06:49] LABS: Albumin 4.1 g/dL (3.2-4.8); Bilirubin, Total 2.8 mg/dL (0.2-1.0); Total Protein 6.8 g/dL (5.7-8.2)
[2024-02-24 06:55] LABS: BUN/Creatinine Ratio 10.2 (10.0-20.0); Blood Urea Nitrogen < 5 mg/dL (9-23)
[2024-02-24 08:00] VITALS: PULSE 78; RESP 20; O2SAT 97
[2024-02-24 08:48] VITALS: BP 123/85; PULSE 78; RESP 20; TEMP 98.2; O2SAT 97
[2024-02-24 13:00] VITALS: BP 140/95; PULSE 89; RESP 20; TEMP 98; O2SAT 97
--- NOTE | 2024-02-24 14:46 | DVHPN2 ---
Progress Note Date Seen: Feb 24, 2024 Medical Necessity Reason Pt with a Central, PICC or Fol: No Objective vital signs Vital Sign Date Time Temp Pulse Resp B/P (MAP) Pulse Ox O2 Delivery O2 Flow Rate FiO2 02/24/24 13:00 98.0 89 20 140/95 (110) 97 98.0 02/24/24 08:00 Room Air* 0 21 Total Intake and Output 02/23/24 02/23/24 02/24/24 15:00 23:00 07:00 Intake Total 1344 ml 650 ml Output Total 1000 ml Balance 344 ml 650 ml medications Current Medications Medications Dose Ordered Sig/Louie Route Start Time Stop Time Status Last Admin Dose Admin Sodium Chloride 10 ml Q8HR IV 02/20/24 22:00 02/24/24 13:52 10 ML Docusate Sodium 100 mg BIDPRN PRN PO 02/20/24 18:45 02/24/24 09:41 100 MG Acetaminophen 650 mg Q6HP PRN PO 02/20/24 18:45 Acetaminophen/ Hydrocodone Bitart 1 tab Q4HP PRN PO 02/20/24 18:45 02/23/24 20:09 1 TAB Hydromorphone HCl 0.5 mg Q4HP PRN IV 02/20/24 18:45 Enoxaparin Sodium 40 mg DAILY SC 02/21/24 10:00 Metoclopramide HCl 10 mg Q8HPRN PRN IV 02/22/24 12:00 02/22/24 21:21 10 MG laboratory and microbiology Laboratory Tests 02/24/24 05:23 Test 02/24/24 05:23 Range/Units Serum Glucose 90 74-106 mg/dL Problem List/Assessment/Plan Problem List/Assessment/Plan AFEBRILE VSS ABD SOFT LESS TENDER SOME LFT TRENDING DOWN CONTINUE CLOSE OBSERVATION Plan discussed with: Patient My Orders My Orders Orders - MARGAUX CROOKS MD Procedure Category Date Status Time Full Liq Diet DIET 02/23/24 Transmitted Dinner MARGAUX CROOKS MD Feb 24, 2024 14:46
[2024-02-24] MEDS: POTASSIUM CHL 20MEQ/100ML 100 ML IV ONE (16:16)
[2024-02-24 17:00] VITALS: BP 135/96; PULSE 72; RESP 20; TEMP 97.6; O2SAT 100
--- NOTE | 2024-02-24 19:01 | DVHPN2 ---
Progress Note - Dictate Date Seen: Feb 24, 2024 Medical Necessity Reason Pt with a Central, PICC or Fol: No Subjective No new complaints today Total bilirubin has decreased today to 2.9 Transaminitis improving slightly vital signs Vital Sign Date Time Temp Pulse Resp B/P (MAP) Pulse Ox O2 Delivery O2 Flow Rate FiO2 02/24/24 17:00 97.6 72 20 135/96 (109) 100 97.6 02/24/24 08:00 Room Air* 0 21 Total Intake and Output 02/23/24 02/23/24 02/24/24 15:00 23:00 07:00 Intake Total 1344 ml 650 ml Output Total 1000 ml Balance 344 ml 650 ml medications Current Medications Medications Dose Ordered Sig/Louie Route Start Time Stop Time Status Last Admin Dose Admin Sodium Chloride 10 ml Q8HR IV 02/20/24 22:00 02/24/24 13:52 10 ML Docusate Sodium 100 mg BIDPRN PRN PO 02/20/24 18:45 02/24/24 09:41 100 MG Acetaminophen 650 mg Q6HP PRN PO 02/20/24 18:45 Acetaminophen/ Hydrocodone Bitart 1 tab Q4HP PRN PO 02/20/24 18:45 02/23/24 20:09 1 TAB Hydromorphone HCl 0.5 mg Q4HP PRN IV 02/20/24 18:45 Enoxaparin Sodium 40 mg DAILY SC 02/21/24 10:00 Metoclopramide HCl 10 mg Q8HPRN PRN IV 02/22/24 12:00 02/22/24 21:21 10 MG objective General: NAD, AAOX3, mild scleral icterus Chest: lung mcduffie clear to auscultation Heart: RRR, no murmur Abdomen: + RUQ tenderness to palpation, +BS laboratory and microbiology Laboratory Tests 02/24/24 05:23 Test 02/24/24 05:23 Range/Units Serum Glucose 90 74-106 mg/dL Problems(with codes): (1) Dilation of biliary tract (2) Biliary colic (3) Cholelithiasis (4) Intractable abdominal pain (5) Elevated LFTs (6) Biliary obstruction Prognosis Assessment plan It is possible the patient may have passed a small stone She is in the process of a possible referral to higher level of care for ERCP and the patient would like to get that done As an alternative if her liver enzymes normalize then advance diet and possible discharge for outpatient follow up Plan discussed with: Patient, Spouse KENNEDI CROOKS MD Feb 24, 2024 19:01
--- NOTE | 2024-02-24 20:22 | DVHPN2 ---
Subjective History of Present Illness 33 y/o F, with a Hx of cholecystectomy, , preeclampsia, and EtOH use, presents with c/o non-radiating, RUQ abdominal pain, nausea, vomiting, and constipation since 1300, today. Patient endorses on unprovoked and sudden onset of symptoms, this afternoon, that has been persisting since. Patient comments on vomitus being green and having white phlegm in it in addition to having an associated "heart burn" sensation. Patient also informs of recent cholecystectomy 2.5 weeks ago and 3 months ago. Patient endorses on no further relevant or pertinent past medical or surgical Hx in addition to recent stress, injuries, sick contact, travel, spoiled food intake, or substance use/exposure. Patient denies having any diarrhea, urinary symptoms, fever, chills, or other associated symptoms or modifiers at this time. update 02/20 - still has pain and nausea although much improved from admission. unable to tolerate food --02/21-patient still having pain, still unable due to tolerate p.o.,. The LFTs has ceased to decline. Repeat right upper quadrant ultrasound shows worsening CBD dilation. Physical exam remains unchanged (tender to palpation right upper quadrant, tender to palpation epigastrium, Morales sign positive). Consulting GI, patient will need HL OC for possible ERCP plus/minus biliary stent, transfers started - -02/22 - patient is feeling better but she appears more jaundiced. However, T bili his rising, ALP she has elevated, LFTs are improving. As per yesterday RU Q ultrasound finds worsening CBD dilation. Transfer was initiated, social and case workers continue to find HL OC for ERCP - 02/23 patient is looking less jaundiced today. Labs are stable, T bili is improved, LFTs are stable, ALP is increasing. Concern for obstruction remains. Patient is anxious to get this over with. Waiting for transfer. Reviewed: H&P Changes from previous H/P or p: No Changes General: Per HPI Objective Vitals Vital Signs Date Time Temp Pulse Resp B/P (MAP) Pulse Ox O2 Delivery O2 Flow Rate FiO2 02/24/24 17:00 97.6 72 20 135/96 (109) 100 97.6 02/24/24 08:00 Room Air* 0 21 Intake/Output Intake and Output 02/24/24 07:00 Intake Total 1994 ml Output Total 1000 ml Balance 994 ml Intake Oral 1994 ml Output Urine Total 1000 ml # Voids 5 Exam GEN: Healthy appearing, well-developed, NAD. PSYCH: Good Judgment. AOx3. Normal memory, mood, and affect. HEENT: NCAT, PERRLA, MMM. CV: RRR, no m/r/g. LUNGS: CTAB, no w/r/c. ABD: epigsatric ttp. : N/A EXT: No clubbing, cyanosis, or edema. skin is Warm, well perfused. No skin rashes or abnormal lesions. Skin looking jaundiced NEURO: Ambulating with no limitations. No focal deficits. Medications Current Medications Medications Dose Ordered Sig/Louie Route Start Time Stop Time Status Last Admin Dose Admin Sodium Chloride 10 ml Q8HR IV 02/20/24 22:00 02/24/24 13:52 10 ML Docusate Sodium 100 mg BIDPRN PRN PO 02/20/24 18:45 02/24/24 09:41 100 MG Acetaminophen 650 mg Q6HP PRN PO 02/20/24 18:45 Acetaminophen/ Hydrocodone Bitart 1 tab Q4HP PRN PO 02/20/24 18:45 02/23/24 20:09 1 TAB Hydromorphone HCl 0.5 mg Q4HP PRN IV 02/20/24 18:45 Enoxaparin Sodium 40 mg DAILY SC 02/21/24 10:00 Metoclopramide HCl 10 mg Q8HPRN PRN IV 02/22/24 12:00 02/22/24 21:21 10 MG Laboratory Results Laboratory Tests 02/24/24 05:23 Chemistry Test 02/24/24 05:23 Albumin 4.1 g/dL (3.2-4.8) Calcium Level 9.8 mg/dL (8.7-10.4) Total Protein 6.8 g/dL (5.7-8.2) Lipid panel Test 02/24/24 05:23 Lipase 52 U/L (12-53) LFT Test 02/24/24 05:23 Alanine Aminotransferase (ALT) 223 U/L (7-40) H Alkaline Phosphatase 523 U/L (46-116) H Aspartate Amino Transferase (AST) 59 U/L (13-40) H Total Bilirubin 2.8 mg/dL (0.2-1.0) H Urinalysis Test 02/19/24 18:25 Urine Color Dark-yellow (Yellow) Urine Clarity Turbid (Clear) H Urine pH 6.0 (5.0-9.0) Urine Specific [place] 1.031 (1.001-1.035) Urine Protein 1+ (Negative) H Urine Ketones 3+ (Negative) H Urine Blood Negative /uL (Negative) Urine Nitrite Negative (Negative) Urine Bilirubin 2+ (Negative) H Urine Urobilinogen 4 mg/dL (Negative) H Urine Leukocyte Esterase Negative /uL (Negative) Urine RBC 5 /hpf (0 - 4) Urine WBC 6 /hpf (0 - 5) Urine Squamous Epithelial Cells Few /hpf (<5) Urine Bacteria Few /hpf (None Seen) H Urine Mucus Few (None Seen) Urine Glucose Normal mg/dL (Normal) Labs and/or images reviewed: Labs reviewed by me, Image(s) reviewed by me Assessment/Plan Assessment/Plan Update- 02/23 patient is looking less jaundiced today. Labs are stable, T bili is improved, LFTs are stable, ALP is increasing. Concern for obstruction remains. Patient is anxious to get this over with. Waiting for transfer to [facility] for ercp +/- biliary stent. abdominal pain PO intolerance Hx recent cholecystectomy hyperbilirubinemia - abdominal pain epigastrium at presentation with n/v - lipase wnl; ALP, LFTs elevated, Tbili 2.5 to 4.0 - CT neg for stones and c/w prior cholecystectomy. - MRCP w dilated intra/extrahepatic ducts but no stones. the dilations can be normal finding in s/p cholecystectomy - repeat RUQ you ultrasound on 02/21 shows worsening CBD dilation - on prn analgesia - pepcid bid - dvt ppx - zofran prn for nausea - fluids conservatively - social consulted: Waiting for transfer to [facility] for ercp +/- biliary stent. hypokalemia - replete. likely 2/2 vomiting full liquid diet pepcid bid dvt ppx medsurg Plan discussed with: Patient Date of Service: Feb 24, 2024 Billing Provider: NGUYỄN ESCALANTE MD Common Visit Codes: [id number] INP/OBS CARE(MOD) NGUYỄN ESCALANTE MD Feb 24, 2024 20:22
[2024-02-24 21:00] VITALS: BP 136/92; PULSE 76; RESP 19; TEMP 97.6; O2SAT 98
[2024-02-25] VITALS (9 sets, daily range): BP systolic 94–132; BP diastolic 61–89; PULSE 73–82; RESP 16–20; TEMP 97.9–98.6; O2SAT 97–99
[2024-02-25 06:34] LABS: Basophils # (auto) 0.1 10 ^3/uL (0-0.2); Eosinophils # (auto) 0.3 10 ^3/uL (0-0.8); Eosinophils % (auto) 4.5 % (0.0-7.0); Hematocrit 40.5 % (36.0-46.0); Hemoglobin 13.9 g/dL (12.2-16.2); Lymphocytes # (auto) 1.1 10 ^3/uL (0.4-5.4); Lymphocytes % (auto) 17.9 % (10.0-50.0); Mean Corpuscular Hemoglobin 30.4 pg (28.0-32.0); Mean Corpuscular Hgb Conc. 34.4 g/dL (32.0-36.0); Mean Corpuscular Volume 88.4 fL (80.0-100.0); Monocytes # (auto) 0.5 10 ^3/uL (0-1.3); Monocytes % (auto) 7.6 % (0.0-12.0); Neutrophils # (auto) 4.2 10 ^3/uL (1.6-8.6); Nucleated Red Blood Cells % 0.1 %; Platelet Count (auto) 169 10^3/uL (140-450); Red Blood Cells 4.58 10^6/uL (4.0-5.20)
[2024-02-25 06:39] LABS: Alanine Aminotransferase 158 U/L (7-40); Albumin 3.9 g/dL (3.2-4.8); Alkaline Phosphatase 436 U/L (46-116); Anion Gap 9 (5-15); Aspartate Aminotransferase 42 U/L (13-40); Calcium 9.5 mg/dL (8.7-10.4); Carbon Dioxide 25 mmol/L (20-31); Chloride 105 mmol/L (98-107); Glucose 85 mg/dL (74-106); Potassium 3.6 mmol/L (3.5-5.1); Sodium 139 mmol/L (136-145)
[2024-02-25 06:40] LABS: Bilirubin, Total 2.1 mg/dL (0.2-1.0); Total Protein 6.4 g/dL (5.7-8.2)
[2024-02-25 06:51] LABS: BUN/Creatinine Ratio 9.4 (10.0-20.0); Blood Urea Nitrogen < 5 mg/dL (9-23)
[2024-02-25 09:25] LABS: Hepatitis B Surface Antigen Negative (Negative)
[2024-02-25 09:45] LABS: Hepatitis A Ab IgM Negative
[2024-02-25 09:46] LABS: Hepatitis B Core IgM Negative; Hepatitis C Antibody Negative (Negative)
--- NOTE | 2024-02-25 09:54 | DVHPN2 ---
Reviewed: H&P Changes from previous H/P or p: No Changes General: Per HPI Objective Vitals Vital Signs Date Time Temp Pulse Resp B/P (MAP) Pulse Ox O2 Delivery O2 Flow Rate FiO2 02/25/24 08:45 97.9 73 17 132/89 (103) 99 97.9 02/24/24 19:40 Room Air* 0 21 Intake/Output Intake and Output 02/25/24 07:00 Intake Total 1380 ml Balance 1380 ml Intake Oral 1380 ml # Voids 9 Medications Current Medications Medications Dose Ordered Sig/Louie Route Start Time Stop Time Status Last Admin Dose Admin Sodium Chloride 10 ml Q8HR IV 02/20/24 22:00 02/25/24 05:59 10 ML Docusate Sodium 100 mg BIDPRN PRN PO 02/20/24 18:45 02/24/24 21:32 100 MG Acetaminophen 650 mg Q6HP PRN PO 02/20/24 18:45 Acetaminophen/ Hydrocodone Bitart 1 tab Q4HP PRN PO 02/20/24 18:45 02/23/24 20:09 1 TAB Hydromorphone HCl 0.5 mg Q4HP PRN IV 02/20/24 18:45 Enoxaparin Sodium 40 mg DAILY SC 02/21/24 10:00 Metoclopramide HCl 10 mg Q8HPRN PRN IV 02/22/24 12:00 02/22/24 21:21 10 MG Laboratory Results Laboratory Tests 02/25/24 05:45 Chemistry Test 02/25/24 05:45 Albumin 3.9 g/dL (3.2-4.8) Calcium Level 9.5 mg/dL (8.7-10.4) Total Protein 6.4 g/dL (5.7-8.2) LFT Test 02/25/24 05:45 Alanine Aminotransferase (ALT) 158 U/L (7-40) H Alkaline Phosphatase 436 U/L (46-116) H Aspartate Amino Transferase (AST) 42 U/L (13-40) H Total Bilirubin 2.1 mg/dL (0.2-1.0) H Urinalysis Test 02/19/24 18:25 Urine Color Dark-yellow (Yellow) Urine Clarity Turbid (Clear) H Urine pH 6.0 (5.0-9.0) Urine Specific [place] 1.031 (1.001-1.035) Urine Protein 1+ (Negative) H Urine Ketones 3+ (Negative) H Urine Blood Negative /uL (Negative) Urine Nitrite Negative (Negative) Urine Bilirubin 2+ (Negative) H Urine Urobilinogen 4 mg/dL (Negative) H Urine Leukocyte Esterase Negative /uL (Negative) Urine RBC 5 /hpf (0 - 4) Urine WBC 6 /hpf (0 - 5) Urine Squamous Epithelial Cells Few /hpf (<5) Urine Bacteria Few /hpf (None Seen) H Urine Mucus Few (None Seen) Urine Glucose Normal mg/dL (Normal) Labs and/or images reviewed: Labs reviewed by me, Image(s) reviewed by me Assessment/Plan Assessment/Plan abdominal pain: Consult by surgeon Dr. Domenico Bhagat appreciated PO intolerance Hx recent cholecystectomy by Dr. Flaherty on 01/30/2024 hyperbilirubinemia improving, down to 2.1 from 6.5, liver function tests improving MRCP shows dilated intra and extrahepatic ducts which is consistent with recent cholecystectomy We will advance diet as tolerated If the patient does not improve symptomatically then we will transfer to higher level of care for ERCP Discussed the plan with the patient in the presence of RN and she agrees. Plan discussed with: Patient Date of Service: Feb 25, 2024 Billing Provider: FELI FELIX MD Common Visit Codes: [id number] INP/OBS CARE(HIGH) FELI FELIX MD Feb 25, 2024 09:54
--- NOTE | 2024-02-25 15:59 | DVHPN2 ---
Progress Note Date Seen: Feb 25, 2024 Medical Necessity Reason Pt with a Central, PICC or Fol: No Objective vital signs Vital Sign Date Time Temp Pulse Resp B/P (MAP) Pulse Ox O2 Delivery O2 Flow Rate FiO2 02/25/24 13:00 98.6 75 16 118/82 (94) 99 98.6 02/25/24 08:30 Room Air* 0 21 Total Intake and Output 02/24/24 02/24/24 02/25/24 15:00 23:00 07:00 Intake Total 1030 ml 350 ml Balance 1030 ml 350 ml medications Current Medications Medications Dose Ordered Sig/Louie Route Start Time Stop Time Status Last Admin Dose Admin Sodium Chloride 10 ml Q8HR IV 02/20/24 22:00 02/25/24 14:00 10 ML Docusate Sodium 100 mg BIDPRN PRN PO 02/20/24 18:45 02/24/24 21:32 100 MG Acetaminophen 650 mg Q6HP PRN PO 02/20/24 18:45 Acetaminophen/ Hydrocodone Bitart 1 tab Q4HP PRN PO 02/20/24 18:45 02/23/24 20:09 1 TAB Hydromorphone HCl 0.5 mg Q4HP PRN IV 02/20/24 18:45 Metoclopramide HCl 10 mg Q8HPRN PRN IV 02/22/24 12:00 02/22/24 21:21 10 MG laboratory and microbiology Laboratory Tests 02/25/24 05:45 Test 02/25/24 05:45 Range/Units Serum Glucose 85 74-106 mg/dL Problem List/Assessment/Plan Problem List/Assessment/Plan AFEBRILE VSS ABD SOFT LESS TENDER SOME LFT TRENDING DOWN CONTINUE CLOSE OBSERVATION HIDA SCAN PENDING Plan discussed with: Patient MARGAUX CROOKS MD Feb 25, 2024 15:59
--- NOTE | 2024-02-25 18:40 | DVHPN2 ---
Progress Note - Dictate Date Seen: Feb 25, 2024 Medical Necessity Reason Pt with a Central, PICC or Fol: No Subjective No new complaints today Total bilirubin has decreased today to 2.1 Transaminitis improving slightly tolerating full liquid diet vital signs Vital Sign Date Time Temp Pulse Resp B/P (MAP) Pulse Ox O2 Delivery O2 Flow Rate FiO2 02/25/24 17:11 98.3 73 16 117/86 (96) 97 98.3 02/25/24 08:30 Room Air* 0 21 Total Intake and Output 02/24/24 02/24/24 02/25/24 15:00 23:00 07:00 Intake Total 1030 ml 350 ml Balance 1030 ml 350 ml medications Current Medications Medications Dose Ordered Sig/Louie Route Start Time Stop Time Status Last Admin Dose Admin Sodium Chloride 10 ml Q8HR IV 02/20/24 22:00 02/25/24 14:00 10 ML Docusate Sodium 100 mg BIDPRN PRN PO 02/20/24 18:45 02/24/24 21:32 100 MG Acetaminophen 650 mg Q6HP PRN PO 02/20/24 18:45 Acetaminophen/ Hydrocodone Bitart 1 tab Q4HP PRN PO 02/20/24 18:45 02/23/24 20:09 1 TAB Hydromorphone HCl 0.5 mg Q4HP PRN IV 02/20/24 18:45 Metoclopramide HCl 10 mg Q8HPRN PRN IV 02/22/24 12:00 02/22/24 21:21 10 MG objective General: NAD, AAOX3, mild scleral icterus Chest: lung mcduffie clear to auscultation Heart: RRR, no murmur Abdomen: + RUQ tenderness to palpation, +BS laboratory and microbiology Laboratory Tests 02/25/24 05:45 Test 02/25/24 05:45 Range/Units Serum Glucose 85 74-106 mg/dL Problems(with codes): (1) Dilation of biliary tract (2) Biliary colic (3) Cholelithiasis (4) Intractable abdominal pain (5) Elevated LFTs (6) Biliary obstruction Prognosis PLAN Advance to soft mechanical diet This patient should ideally have a ERCP performed as she had moderate elevation liver enzymes with a bilirubin of 6.9 Liver enzymes are trending down suggesting passage of possible one obstructing stone However we should make sure that the bile duct is clear and the patient is also requesting to have an ERCP done before she is discharged and pt wants that too foundation relations manager to arrange referral to [facility] a higher level of care for an ERCP Plan discussed with: Other (Nurse) KENNEDI CROOKS MD Feb 25, 2024 18:40
[2024-02-26] VITALS (7 sets, daily range): BP systolic 105–141; BP diastolic 62–91; PULSE 70–86; RESP 17–19; TEMP 97.7–98.1; O2SAT 96–99
[2024-02-26 06:19] LABS: Alanine Aminotransferase 139 U/L (7-40); Alkaline Phosphatase 393 U/L (46-116); Anion Gap 9 (5-15); Aspartate Aminotransferase 50 U/L (13-40); Bilirubin, Total 1.9 mg/dL (0.2-1.0); Calcium 9.3 mg/dL (8.7-10.4); Carbon Dioxide 25 mmol/L (20-31); Chloride 105 mmol/L (98-107); Glucose 84 mg/dL (74-106); Potassium 3.6 mmol/L (3.5-5.1); Sodium 139 mmol/L (136-145); Total Protein 6.5 g/dL (5.7-8.2)
[2024-02-26 06:21] LABS: BUN/Creatinine Ratio 9.4 (10.0-20.0); Blood Urea Nitrogen < 5 mg/dL (9-23)
[2024-02-26 06:38] LABS: Basophils # (auto) 0 10 ^3/uL (0-0.2); Basophils % (auto) 0.8 % (0.0-2.0); Eosinophils # (auto) 0.3 10 ^3/uL (0-0.8); Hematocrit 44.5 % (36.0-46.0); Hemoglobin 14.3 g/dL (12.2-16.2); Lymphocytes # (auto) 1.1 10 ^3/uL (0.4-5.4); Lymphocytes % (auto) 19.5 % (10.0-50.0); Mean Corpuscular Hemoglobin 29.4 pg (28.0-32.0); Mean Corpuscular Hgb Conc. 32.1 g/dL (32.0-36.0); Mean Corpuscular Volume 91.4 fL (80.0-100.0); Monocytes # (auto) 0.4 10 ^3/uL (0-1.3); Monocytes % (auto) 7.5 % (0.0-12.0); Neutrophils # (auto) 3.9 10 ^3/uL (1.6-8.6); Neutrophils % (auto) 67.2 % (37.0-80.0); Nucleated Red Blood Cells % 0.1 %; Platelet Count (auto) 173 10^3/uL (140-450); Red Blood Cells 4.87 10^6/uL (4.0-5.20); Red Cell Distribution Width 14.6 % (11.8-14.3); White Blood Cell 5.8 10^3/uL (4.4-10.8)
--- NOTE | 2024-02-26 08:40 | DVHPN2 ---
Reviewed: H&P Changes from previous H/P or p: No Changes General: Per HPI Objective Vitals Vital Signs Date Time Temp Pulse Resp B/P (MAP) Pulse Ox O2 Delivery O2 Flow Rate FiO2 02/26/24 05:00 98.0 83 18 105/62 (76) 96 98.0 02/25/24 20:00 Room Air* 0 21 Intake/Output Intake and Output 02/26/24 07:00 Intake Total 1300 ml Balance 1300 ml Intake Oral 1300 ml # Voids 9 # Bowel Movements 2 Medications Current Medications Medications Dose Ordered Sig/Louei Route Start Time Stop Time Status Last Admin Dose Admin Sodium Chloride 10 ml Q8HR IV 02/20/24 22:00 02/26/24 06:01 10 ML Docusate Sodium 100 mg BIDPRN PRN PO 02/20/24 18:45 02/24/24 21:32 100 MG Acetaminophen 650 mg Q6HP PRN PO 02/20/24 18:45 Acetaminophen/ Hydrocodone Bitart 1 tab Q4HP PRN PO 02/20/24 18:45 02/23/24 20:09 1 TAB Hydromorphone HCl 0.5 mg Q4HP PRN IV 02/20/24 18:45 Metoclopramide HCl 10 mg Q8HPRN PRN IV 02/22/24 12:00 02/22/24 21:21 10 MG Laboratory Results Laboratory Tests 02/26/24 05:03 Chemistry Test 02/26/24 05:03 Albumin 4.0 g/dL (3.2-4.8) Calcium Level 9.3 mg/dL (8.7-10.4) Total Protein 6.5 g/dL (5.7-8.2) LFT Test 02/26/24 05:03 Alanine Aminotransferase (ALT) 139 U/L (7-40) H Alkaline Phosphatase 393 U/L (46-116) H Aspartate Amino Transferase (AST) 50 U/L (13-40) H Total Bilirubin 1.9 mg/dL (0.2-1.0) H Urinalysis Test 02/19/24 18:25 Urine Color Dark-yellow (Yellow) Urine Clarity Turbid (Clear) H Urine pH 6.0 (5.0-9.0) Urine Specific [place] 1.031 (1.001-1.035) Urine Protein 1+ (Negative) H Urine Ketones 3+ (Negative) H Urine Blood Negative /uL (Negative) Urine Nitrite Negative (Negative) Urine Bilirubin 2+ (Negative) H Urine Urobilinogen 4 mg/dL (Negative) H Urine Leukocyte Esterase Negative /uL (Negative) Urine RBC 5 /hpf (0 - 4) Urine WBC 6 /hpf (0 - 5) Urine Squamous Epithelial Cells Few /hpf (<5) Urine Bacteria Few /hpf (None Seen) H Urine Mucus Few (None Seen) Urine Glucose Normal mg/dL (Normal) Labs and/or images reviewed: Labs reviewed by me, Image(s) reviewed by me Assessment/Plan Assessment/Plan Acute abdominal pain: Consult by surgeon Dr. Domenico Bhagat appreciated Status post cholecystectomy by Dr. Flaherty on 01/30/2024 Hyperbilirubinemia improving, down to 1.9 from 6.5, liver function tests improving MRCP shows dilated intra and extrahepatic ducts which is consistent with recent cholecystectomy GI Dr. Gladys Bhagat recommended transfer to higher level of care for ERCP for possible CBD stone Orders placed Plan discussed with: Patient Date of Service: Feb 26, 2024 Billing Provider: FELI FELIX MD Common Visit Codes: [id number] INP/OBS CARE(HIGH) FELI FELIX MD Feb 26, 2024 08:39
--- NOTE | 2024-02-26 08:43 | DVHTS ---
Transfer Summary Transfer Summary Date of Admission Feb 20, 2024 at 18:40 Date of Transfer: Feb 26, 2024 Transfer Diagnosis Hyperbilirubinemia and elevated liver function tests following cholecystectomy rule out CBD stone Brief Hx & Hospital Course: 34-year-old female had cholecystectomy on 01/30/2024. came in for abdominal pain nausea and vomiting time of transfer. bilirubin was high 6.5 came down to 1.9 at the time of transfer. Liver functions are elevated and slowly improving. MRCP showed intra and extrahepatic biliary ductal dilatation consistent with recent cholecystectomy seen by surgeon Dr. Jr Bhagat and GI Dr. Gladys Bhagat GI recommended transfer to higher level of care for ERCP for possible CBD stones. General condition satisfactory at the time of transfer. Patient agrees for tr ansfer Transfer to: Higher level of care for ERCP Date of Service: Feb 26, 2024 Billing Provider: FELI FELIX MD Common Visit Codes: [id number] DISCH DAY >30min FELI FELIX MD Feb 26, 2024 08:43
--- NOTE | 2024-02-26 16:10 | DVHPN2 ---
Progress Note Date Seen: Feb 26, 2024 Medical Necessity Reason Pt with a Central, PICC or Fol: No Objective vital signs Vital Sign Date Time Temp Pulse Resp B/P (MAP) Pulse Ox O2 Delivery O2 Flow Rate FiO2 02/26/24 08:00 70 17 99 Room Air* 0 21 02/26/24 05:00 98.0 105/62 (76) 98.0 Total Intake and Output 02/25/24 02/25/24 02/26/24 15:00 23:00 07:00 Intake Total 600 ml 700 ml Balance 600 ml 700 ml medications Current Medications Medications Dose Ordered Sig/Louie Route Start Time Stop Time Status Last Admin Dose Admin Sodium Chloride 10 ml Q8HR IV 02/20/24 22:00 02/26/24 06:01 10 ML Docusate Sodium 100 mg BIDPRN PRN PO 02/20/24 18:45 02/24/24 21:32 100 MG Acetaminophen 650 mg Q6HP PRN PO 02/20/24 18:45 Acetaminophen/ Hydrocodone Bitart 1 tab Q4HP PRN PO 02/20/24 18:45 02/23/24 20:09 1 TAB Hydromorphone HCl 0.5 mg Q4HP PRN IV 02/20/24 18:45 Metoclopramide HCl 10 mg Q8HPRN PRN IV 02/22/24 12:00 02/22/24 21:21 10 MG laboratory and microbiology Laboratory Tests 02/26/24 05:03 Test 02/26/24 05:03 Range/Units Serum Glucose 84 74-106 mg/dL Problem List/Assessment/Plan Problem List/Assessment/Plan AFEBRILE VSS 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
--- NOTE | 2024-02-26 17:52 | DVHPN2 ---
Progress Note - Dictate Date Seen: Feb 26, 2024 Medical Necessity Reason Pt with a Central, PICC or Fol: No Subjective No new complaints today Total bilirubin has decreased today to 1.9 Transaminitis improving slightly tolerating soft diet Complaining of sore throat vital signs Vital Sign Date Time Temp Pulse Resp B/P (MAP) Pulse Ox O2 Delivery O2 Flow Rate FiO2 02/26/24 16:30 98.1 75 19 141/80 (100) 98 98.1 02/26/24 08:00 Room Air* 0 21 Total Intake and Output 02/25/24 02/25/24 02/26/24 15:00 23:00 07:00 Intake Total 600 ml 700 ml Balance 600 ml 700 ml medications Current Medications Medications Dose Ordered Sig/Louie Route Start Time Stop Time Status Last Admin Dose Admin Sodium Chloride 10 ml Q8HR IV 02/20/24 22:00 02/26/24 14:00 10 ML Docusate Sodium 100 mg BIDPRN PRN PO 02/20/24 18:45 02/24/24 21:32 100 MG Acetaminophen 650 mg Q6HP PRN PO 02/20/24 18:45 Acetaminophen/ Hydrocodone Bitart 1 tab Q4HP PRN PO 02/20/24 18:45 02/23/24 20:09 1 TAB Hydromorphone HCl 0.5 mg Q4HP PRN IV 02/20/24 18:45 Metoclopramide HCl 10 mg Q8HPRN PRN IV 02/22/24 12:00 02/22/24 21:21 10 MG objective General: NAD, AAOX3, mild scleral icterus Chest: lung mcduffie clear to auscultation Heart: RRR, no murmur Abdomen: + RUQ tenderness to palpation, +BS laboratory and microbiology Laboratory Tests 02/26/24 05:03 Test 02/26/24 05:03 Range/Units Serum Glucose 84 74-106 mg/dL Problems(with codes): (1) Dilation of biliary tract (2) Biliary colic (3) Cholelithiasis (4) Intractable abdominal pain (5) Elevated LFTs (6) Biliary obstruction Prognosis Assessment plan More than likely patient may have passed her CBD stone which did cause prolonged obstruction and cholestasis Surgical consult has ordered a HIDA scan Patient has been accepted at [facility] and is awaiting transfer Continue supportive care Dietary Evaluation Review Comments: 1) Advance pt diet when medically feasible 2) Continue current plan of care Expected Outcomes/Goals: F/U in 3-5 days Plan discussed with: Patient, Other (Dr Jr Bhagat) KENNEDI BHAGAT MD Feb 26, 2024 17:52
[2024-02-27 01:06] VITALS: BP 109/69; PULSE 75; RESP 17; TEMP 97.9; O2SAT 98
[2024-02-27 05:00] VITALS: BP 119/72; PULSE 79; RESP 18; TEMP 97.7; O2SAT 97
[2024-02-27 08:00] VITALS: O2SAT 99
[2024-02-27 08:06] VITALS: BP 112/87; PULSE 85; RESP 16; TEMP 97.6; O2SAT 97
--- NOTE | 2024-02-27 08:20 | DVHPN2 ---
Reviewed: H&P Changes from previous H/P or p: No Changes General: Per HPI Objective Vitals Vital Signs Date Time Temp Pulse Resp B/P (MAP) Pulse Ox O2 Delivery O2 Flow Rate FiO2 02/27/24 08:06 97.6 85 16 112/87 (95) 97 97.6 02/26/24 20:00 Room Air* 0 21 Intake/Output Intake and Output 02/27/24 07:00 Intake Total 1480 ml Output Total 1 ml Balance 1479 ml Intake Oral 1480 ml Stool Total 1 ml # Voids 9 Medications Current Medications Medications Dose Ordered Sig/Louie Route Start Time Stop Time Status Last Admin Dose Admin Sodium Chloride 10 ml Q8HR IV 02/20/24 22:00 02/27/24 06:00 10 ML Docusate Sodium 100 mg BIDPRN PRN PO 02/20/24 18:45 02/24/24 21:32 100 MG Acetaminophen 650 mg Q6HP PRN PO 02/20/24 18:45 Acetaminophen/ Hydrocodone Bitart 1 tab Q4HP PRN PO 02/20/24 18:45 02/23/24 20:09 1 TAB Hydromorphone HCl 0.5 mg Q4HP PRN IV 02/20/24 18:45 Metoclopramide HCl 10 mg Q8HPRN PRN IV 02/22/24 12:00 02/22/24 21:21 10 MG Laboratory Results Laboratory Tests 02/26/24 05:03 Urinalysis Test 02/19/24 18:25 Urine Color Dark-yellow (Yellow) Urine Clarity Turbid (Clear) H Urine pH 6.0 (5.0-9.0) Urine Specific [place] 1.031 (1.001-1.035) Urine Protein 1+ (Negative) H Urine Ketones 3+ (Negative) H Urine Blood Negative /uL (Negative) Urine Nitrite Negative (Negative) Urine Bilirubin 2+ (Negative) H Urine Urobilinogen 4 mg/dL (Negative) H Urine Leukocyte Esterase Negative /uL (Negative) Urine RBC 5 /hpf (0 - 4) Urine WBC 6 /hpf (0 - 5) Urine Squamous Epithelial Cells Few /hpf (<5) Urine Bacteria Few /hpf (None Seen) H Urine Mucus Few (None Seen) Urine Glucose Normal mg/dL (Normal) Labs and/or images reviewed: Labs reviewed by me, Image(s) reviewed by me Assessment/Plan Assessment/Plan Acute abdominal pain: Consult by surgeon Dr. Domenico Bhagat appreciated Status post cholecystectomy by Dr. Flaherty on 01/30/2024 Hyperbilirubinemia improving, down to 1.9 from 6.5, liver function tests improving MRCP shows dilated intra and extrahepatic ducts which is consistent with recent cholecystectomy GI Dr. Gladys Bhagat recommended transfer to higher level of care for ERCP for possible CBD stone Orders placed Per medical case worker notes , awaiting authorization from [facility] GI Dr Gladys Bhagat ordered HIDA scan, patient refusing. Plan discussed with: Patient My Orders Orders - FELI FELIX MD Procedure Category Date Status Time * Assurance Sourcing Manager CONS 02/26/24 Transmitted Consult Discharge DISCHARGE 02/26/24 Transmitted 08:39 Date of Service: Feb 27, 2024 Billing Provider: FELI FELIX MD Common Visit Codes: [id number] INP/OBS CARE(HIGH) FELI FELIX MD Feb 27, 2024 08:20
[2024-02-27 10:23] LABS: Alanine Aminotransferase 123 U/L (7-40); Alkaline Phosphatase 365 U/L (46-116); Calcium 9.5 mg/dL (8.7-10.4); Carbon Dioxide 28 mmol/L (20-31); Chloride 106 mmol/L (98-107); Glucose 136 mg/dL (74-106)
[2024-02-27 10:24] LABS: Albumin 4.2 g/dL (3.2-4.8); Anion Gap 7 (5-15); Aspartate Aminotransferase 44 U/L (13-40); Bilirubin, Total 1.4 mg/dL (0.2-1.0); Potassium 3.4 mmol/L (3.5-5.1); Sodium 141 mmol/L (136-145); Total Protein 6.9 g/dL (5.7-8.2)
[2024-02-27 10:30] LABS: BUN/Creatinine Ratio 8.5 (10.0-20.0); Blood Urea Nitrogen < 5 mg/dL (9-23)
[2024-02-27 12:03] VITALS: BP 115/73; PULSE 74; RESP 18; TEMP 97; O2SAT 95
--- NOTE | 2024-02-27 13:43 | DVHPN2 ---
Progress Note - Dictate Date Seen: Feb 27, 2024 Medical Necessity Reason Pt with a Central, PICC or Fol: No Subjective No new complaints today Total bilirubin has decreased today to 1.4 Transaminitis improving slightly; alkaline phosphatase trending down tolerating soft diet Sore throat is better vital signs Vital Sign Date Time Temp Pulse Resp B/P (MAP) Pulse Ox O2 Delivery O2 Flow Rate FiO2 02/27/24 12:03 97.0 74 18 115/73 (87) 95 97.0 02/27/24 08:00 Room Air* 0 21 Total Intake and Output 02/26/24 02/26/24 02/27/24 15:00 23:00 07:00 Intake Total 780 ml 700 ml Output Total 1 ml Balance 779 ml 700 ml medications Current Medications Medications Dose Ordered Sig/Louie Route Start Time Stop Time Status Last Admin Dose Admin Sodium Chloride 10 ml Q8HR IV 02/20/24 22:00 02/27/24 06:00 10 ML Docusate Sodium 100 mg BIDPRN PRN PO 02/20/24 18:45 02/24/24 21:32 100 MG Acetaminophen 650 mg Q6HP PRN PO 02/20/24 18:45 Acetaminophen/ Hydrocodone Bitart 1 tab Q4HP PRN PO 02/20/24 18:45 02/23/24 20:09 1 TAB Hydromorphone HCl 0.5 mg Q4HP PRN IV 02/20/24 18:45 Metoclopramide HCl 10 mg Q8HPRN PRN IV 02/22/24 12:00 02/22/24 21:21 10 MG objective General: NAD, AAOX3, mild scleral icterus Chest: lung mcduffie clear to auscultation Heart: RRR, no murmur Abdomen: + RUQ tenderness to palpation, +BS laboratory and microbiology Laboratory Tests 02/27/24 09:35 02/26/24 05:03 Test 02/27/24 09:35 Range/Units Serum Glucose 136 H 74-106 mg/dL Problems(with codes): (1) Elevated LFTs (2) Cholelithiasis (3) Biliary colic (4) Dilation of biliary tract (5) Biliary obstruction Prognosis Recommend Patient is requesting a discharge home today She contacted her insurance and she feels she can not wait as an inpatient anymore She will be seen in my office upon discharge and I will continue to monitor her liver enzymes Patient was advised that she can return to ER if she has recurrent symptoms of biliary colic Advance diet as tolerated Dietary Evaluation Review Comments: 1) Advance pt diet when medically feasible 2) Continue current plan of care Expected Outcomes/Goals: F/U in 3-5 days Plan discussed with: Patient, Other (Dr Phil Young) KENNEDI CROOKS MD Feb 27, 2024 13:43
[2024-02-27 16:45] VITALS: BP 122/85; PULSE 75; RESP 19; TEMP 97.6; O2SAT 99
== END 2024-02-27 17:06 | disposition home or self-care (01) | DRG 446 ==
LOC: ER 17:59 → OVERFLOW 02-20 18:40 → CENTRAL 02-20 20:35
PROVIDERS: ADMIT Student in an Organized Health Care Education/Training Program; ATTEND Family Medicine
DX: K80.51 Calculus of bile duct without cholangitis or cholecystitis with obstruction (principal); E87.6 Hypokalemia; E80.6 Other disorders of bilirubin metabolism; K59.00 Constipation, unspecified; Z83.3 Family history of diabetes mellitus; Z82.0 Family history of epilepsy and other diseases of the nervous system; Z79.2 Long term (current) use of antibiotics; Z79.899 Other long term (current) drug therapy; Z90.49 Acquired absence of other specified parts of digestive tract
CPT/HCPCS: 36415; 74177; 74181; 76705; 80053; 80074; 81001; 82248; 83010; 83605; 83615; 83690; 84702; 85025; 96361; 96374; G0378; J1885; J2003; J2405; J3480; Q0162